=== PATIENT | male | born 1950 | race Caucasian/White ===

== ENCOUNTER 2017-11-29 09:14 | Outpatient (CLI) | payer MEDICARE ==
[2017-11-29 10:21] LABS: INR-International Normal Ratio 1.2; Prothrombin Time 15.7 SEC (12.0-14.7)
[2017-11-29 10:40] LABS: Anion Gap 16 mmol/L (10-20); BUN (Urea Nitrogen) 25 mg/dL (8.4-25.7); CRP (Inflammatory) Less than 0.50 mg/dL (= or < 0.5); Calc. Creatinine Clearance 0 mL/min (70-130); Calcium 9.9 mg/dL (7.8-10.44); Carbon Dioxide 24 mmol/L (23-31); Chloride 101 mmol/L (98-107); Estimated GFR-MDRD 46; Glucose 136 mg/dL (80-115); Potassium 4.5 mmol/L (3.5-5.1); Sodium 136 mmol/L (136-145)
[2017-11-29 10:42] LABS: Bilirubin Small (Negative); Blood, Urine Negative (Negative); Clarity CLEAR (Clear); Glucose, Urine (Dipstick) Negative (Negative); Leukocyte Negative (Negative); Nitrite Negative (Negative); Protein, Urine (Dipstick) Negative (Neg-Trace); Specific Gravity, Urine 1.025 (1.002-1.036); pH, Urine 5.5 (5.0-9.0)
[2017-11-29 10:50] LABS: Bacteria/HPF None Seen HPF (None Seen); Hyaline Casts/LPF 0-3 HYALINE CAST LPF (0-3 Hyaline); Pathc Cast-AUWi Flag 0.14 (0-2.49); RBC/HPF 0-3 HPF (0-3); Squamous Epithelial None Seen HPF (0-3); WBC/HPF 0-3 HPF (0-3)
[2017-11-29 11:03] LABS: Eosinophils 1 % (0-10); Hemoglobin 13.3 g/dL (14.0-18.0); Lymphocytes 29 % (21-51); MDiff Complete? YES; Mean Corpuscular HGB CONC 35.2 g/dL (32.0-36.0); Mean Corpuscular Hemoglobin 36.8 pg (27.0-31.0); Mean Platelet Volume 7.5 fL (7.4-10.4); Monocytes 10 % (0-10); Neutrophil 60 % (42-75); PLT Morphology Comment Appears Adequate; Platelet Count 176 thou/uL (130-400); RBC Distribution Width 12.9 % (11.5-14.5); White Blood Cell (WBC) Count 4.8 thou/uL (4.8-10.8)
--- NOTE | 2017-11-29 14:29 | EKG ---
Test Reason : Blood Pressure : / mmHG Vent. Rate : 085 BPM Atrial Rate : 085 BPM P-R Int : 250 ms QRS Dur : 090 ms QT Int : 364 ms P-R-T Axes : 065 067 052 degrees QTc Int : 433 ms Sinus rhythm with 1st degree A-V block Cannot rule out Anterior infarct (cited on or before 18-JAN-2017) Abnormal ECG When compared with ECG of 18-JAN-2017 16:44, NC interval has increased Nonspecific T wave abnormality no longer evident in Inferior leads Confirmed by ELINA LEE ([id number]) on 11/29/2017 2:28:35 PM Referred By: BENOIT Confirmed By:ELINA LEE
== END 2017-11-29 09:15 | disposition home or self-care (01) ==
LOC: LABBT 09:14
PROVIDERS: ATTEND Orthopaedic Surgery
DX: Z01.818 Encounter for other preprocedural examination (principal); I44.0 Atrioventricular block, first degree; R94.31 Abnormal electrocardiogram [ECG] [EKG]; Z96.641 Presence of right artificial hip joint
CPT/HCPCS: 80048; 81001; 85025; 85610; 85652; 86140; 86850; 86900; 86901; 87081; 93005; 93010

== ENCOUNTER 2017-11-29 09:15 | Inpatient (IN) | payer MEDICARE ==
[2017-11-29 09:57] VITALS: BMI 40.1
--- NOTE | 2017-12-05 16:37 | HP ---
DATE OF ADMISSION: 12/06/2017 HISTORY OF PRESENT ILLNESS: The patient is a 67-year-old male who has a complicated history followin g previous right total hip replacement. He first underwent right total hip replacement in 03/2016. After vigorous physical therapy so weeks postop, he developed rupture of his abductor repair and elizabeth karen and required secondary wound closure. He initially did well following this, but in 01/2017, he developed a periprosthetic fracture about the stem with the femoral component. There is no definite injury. He underwent revision with open reduction internal fixation and placement of a long stem fem oral component. He initially did well, but subsequently the stem subsided within the femoral canal a nd he developed shortening between 3/4 of an inch to almost 1 inch of shortening and he developed sub luxation and popping at the hip which was documented on stress x-rays. The fracture is subsequently healed. More definitive treatment has been delayed because the patient does have a history of atrial fibrillation and has been on anticoagulation. He did undergo a Watchman procedure recently which mendes s been successfully sinus rhythm. He has obtained cardiac clearance from Dr. Sotelo as well as Dr. Marcus Carolina. He has been on Eliquis, but he has stopped this 3 days prior to surgery and the pl an is to place him on Plavix several days postop. He is admitted at this time for total hip revision of at least the femoral component. PAST HISTORY: As noted above. The patient has had a previous bypass surgery, also had low back surg sarkis. He has a history of gout. CURRENT MEDICATIONS: Prilosec, tamsulosin, carvedilol, valsartan, hydrochlorothiazide, aspirin, mult ivitamins, cetirizine, Eliquis, Praluent, Flomax ProAir, testosterone, multivitamins, indomethacin. He has stopped the Eliquis, but has continued aspirin and as mentioned above, it has planned to place him on Plavix per Cardiology after recovering from hip surgery. He has no known allergies. Family history, social history, review of systems is otherwise unremarkable. Please see the old delmer t. PHYSICAL EXAMINATION: GENERAL: Reveals a healthy heavyset male. HEENT: Unremarkable. NECK: Supple. CHEST: Clear. HEART: Regular rate and rhythm. ABDOMEN: Soft, nontender. RECTAL/GENITAL: Deferred. EXTREMITIES: Pertinent findings of the right hip. The previous wounds are healed well. The right l eg is shorter by at least one half to the course of an inch. There is no point tenderness. There is pain and slight popping with extremes of hip motion. NEUROVASCULAR: Intact. There are palpable distal pulses. He walks with a walker. X-RAY FINDINGS: X-rays of the right hip reveal a previous fracture is healed. The acetabular compon ent is in good position. The femoral stem has subsided within the canal of the femur. IMPRESSION: 1. 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 2. Atherosclerotic cardiovascular disease status post bypass. 3. History of atrial fibrillation, status post Watchman foot. 4. History of hypertension. 5. History of gout. PLAN: Right total hip reveal a revision of at least the femoral component and possible acetabular co mponent. The nature of the surgery, length of recovery, and potential complications as infection, lo ss of motion, incomplete relief, neurovascular injury, possible transfusion, fracture of the femur, l eg length discrepancy, continued instability, and need for revision have been discussed in detail wit h the patient and his .
[2017-12-06] MEDS ORDERED: CEFAZOLIN/Water 2 GM/20 ML SYRINGE ONE (06:18)
[2017-12-06] MEDS ORDERED: Sodium Chloride 0.9% 100 ML ONE (06:18)
[2017-12-06] MEDS ORDERED: Fentanyl 100 MCG/2 ML VIAL ONE ×6 (06:35→11:24)
[2017-12-06] MEDS ORDERED: Midazolam HCl 2 mg/2 ml Vial ONE ×2 (06:35→06:45)
[2017-12-06] MEDS ORDERED: Ropivacaine 0.5% HCl/PF (150 MG/30 ML VIAL) ONE (06:36)
[2017-12-06] MEDS ORDERED: Ropivacaine 0.2% HCl/PF 20 ML ONE (08:59)
[2017-12-06] MEDS ORDERED: Ondansetron HCl/PF 4 MG/2 ML Vial IVP PRN ×3 (09:49→12:57)
[2017-12-06] MEDS ORDERED: Promethazine HCl 25 MG/ML VIAL IM PRN ×2 (09:49→10:45)
[2017-12-06] MEDS ORDERED: Promethazine HCl 25 MG/ML VIAL SLOW IVP PRN ×2 (09:49→12:57)
[2017-12-06] MEDS ORDERED: Tranexamic Acid 1,000 MG in Sodium Chloride 0.9% 100 ML IVPB SCH ×2 (10:30→12:57)
[2017-12-06] MEDS ORDERED: fentaNYL Citrate/PF 1,250 MCG, Bupivacaine 25 ML in Sodium Chloride 0.9% 250 ML 200 ML EPIDURAL SCH (10:45)
[2017-12-06] MEDS ORDERED: diphenhydrAMINE 50 MG/ML VIAL IVP PRN (10:45)
[2017-12-06] MEDS ORDERED: Zolpidem Tartrate 5 MG TAB PO PRN ×2 (10:45→12:57)
[2017-12-06] MEDS ORDERED: traMADol HCl 50 MG TAB PO PRN ×3 (10:45→12:57)
[2017-12-06] MEDS ORDERED: diphenhydrAMINE 25 MG CAP PO PRN ×2 (10:45→12:57)
[2017-12-06] MEDS ORDERED: Hydrocerin (Eucerin) Cream 120 gm Jar TOP PRN (10:45)
[2017-12-06] MEDS ORDERED: Naloxone HCl 0.4 mg/ml Vial IV PRN (10:45)
[2017-12-06] MEDS ORDERED: Promethazine HCl 25 MG SUPP PR PRN (10:45)
[2017-12-06] MEDS ORDERED: Bupivacaine 0.25% 10 ML VIAL EPIDURAL PRN (10:45)
[2017-12-06] MEDS ORDERED: diphenhydrAMINE 50 MG/ML VIAL IM PRN (10:45)
[2017-12-06] MEDS ORDERED: HYDROcodone/Acetaminophen 5/325 mg Tablet PO PRN (10:45)
[2017-12-06] MEDS ORDERED: Naloxone HCl 0.4 mg/ml Vial IVP PRN (10:45)
[2017-12-06] MEDS ORDERED: ALIROCUMAB 75 MG SQ SCH (12:57)
[2017-12-06] MEDS ORDERED: HYDROcodone/Acetaminophen 10/325 mg Tablet PO PRN ×2 (12:57)
[2017-12-06] MEDS ORDERED: CEFAZOLIN/Water 2 GM/20 ML SYRINGE SLOW IVP SCH (12:57)
[2017-12-06] MEDS ORDERED: Fentanyl 100 MCG/2 ML VIAL SLOW IVP PRN ×2 (12:57)
[2017-12-06] MEDS ORDERED: Acetaminophen 325 MG TAB PO PRN (12:57)
[2017-12-06] MEDS: HYDROcodone/Acetaminophen 5/325 mg Tablet PO PRN ×3 (13:09→21:16)
--- NOTE | 2017-12-06 13:27 | RAD ---
RIGHT HIP TWO VIEWS: History: Post op hip. Comparison: 01-23-17 FINDINGS: Satisfactory appearance of right hip arthroplasty with long femoral stem and multiple cerclage wires. Post-operative gas and edema is present. IMPRESSION: Satisfactory post-operative appearance. POS: EFFIE
[2017-12-06] MEDS ORDERED: ALIROCUMAB 75 MG SC SCH (13:30)
[2017-12-06] MEDS ORDERED: Levalbuterol HCl 0.63 MG/3 ML NEB NEB PRN (14:00)
[2017-12-06] MEDS: Sodium Chloride 0.9% 1,000 ML IV SCH ×2 (14:03→22:57)
[2017-12-06] MEDS ORDERED: Albuterol Sulfate 1.25 MG/3 ML NEB NEB PRN (14:19)
[2017-12-06] MEDS: CEFAZOLIN/Water 2 GM/20 ML SYRINGE SLOW IVP SCH ×2 (15:21→21:50)
[2017-12-06] MEDS ORDERED: Indomethacin 25 mg Capsule PO SCH (17:00)
[2017-12-06] MEDS ORDERED: Aspirin 325 MG TAB PO SCH (21:00)
[2017-12-06] MEDS ORDERED: Non-Formulary Item 1 EACH (Melatonin [Melatonin] 10 MG) PO SCH (21:00)
[2017-12-06] MEDS: Indomethacin 25 mg Capsule PO SCH (21:16)
[2017-12-06] MEDS: Melatonin 3 MG TAB PO SCH (21:16)
[2017-12-06] MEDS: Tamsulosin HCl 0.4 MG CAP PO SCH (21:17)
[2017-12-06] MEDS: Carvedilol 3.125 MG TAB PO SCH (21:17)
[2017-12-06] MEDS: Senokot S 8.6-50 MG TAB PO SCH (21:18)
[2017-12-06] MEDS: Ferrous Gluconate 324 MG TAB PO SCH (21:22)
[2017-12-07] MEDS: HYDROcodone/Acetaminophen 5/325 mg Tablet PO PRN ×4 (01:14→21:50)
[2017-12-07 05:21] LABS: Hemoglobin 9.3 g/dL (14.0-18.0); Mean Corpuscular HGB CONC 34.3 g/dL (32.0-36.0); Mean Corpuscular Hemoglobin 36.7 pg (27.0-31.0); Mean Platelet Volume 7.8 fL (7.4-10.4); Platelet Count 132 thou/uL (130-400); RBC Distribution Width 12.7 % (11.5-14.5); Red Blood Cell (RBC) Count 2.54 mill/uL (4.70-6.10); White Blood Cell (WBC) Count 6.5 thou/uL (4.8-10.8)
--- NOTE | 2017-12-07 06:47 | HP ---
DATE OF ADMISSION: 12/06/2017 PRIMARY CARE PHYSICIAN: Dr. Ray Gillespie. CHIEF COMPLAINT: Right total hip. HISTORY OF PRESENT ILLNESS: Dr. Cortez has underwent routine right total hip replacement. The patient did well with surgery and states his pain is controlled. The patient with a history of atrial fibrillation, priorly on Eliquis. The patient has discussed with his harp regulator on an outpatient basis for preop clearance, transitioning to Plavix on discharge, is currently on aspirin. Reports no active bleeding and is followed by Pulmonology on outpatient basis for a possible diagnosis of COPD; however, felt to be secondary to his obesity and possibly Pickwickian syndrome. Patient denies any sputum production. Does have a little irritation following intubation and dry cough, but no shortness of breath, no chest pain. Patient does state he gets quite constipated with narcotics, but has docusate sodium/sennosides ordered. No current abdomen pain. REVIEW OF SYSTEMS: No fevers, no chills. Positive for cough. No shortness breath, no chest pain, no palpitations. No abdomen pain, no current constipation. No lower extremity edema. Some postsurgical right hip pain with expectations. No dizziness or confusion. PAST MEDICAL HISTORY: Includes coronary artery disease, COPD, paroxysmal atrial fibrillation, hypertension, hyperlipidemia. HOME MEDICATIONS: Include Eliquis 5 mg, aspirin 81 mg, carvedilol 3.125 mg, hydrochlorothiazide 25 mg, indomethacin for history of gout 50 mg, melatonin at bedtime, Lovaza, fish oil omega 3, Prilosec 20 mg, Flomax 0.4 mg, valsartan/ hydrochlorothiazide 80/12.5. The patient does have obstructive sleep apnea, is on CPAP within. PAST SURGICAL HISTORY: Include coronary artery bypass graft, low back surgery. FAMILY HISTORY: Noncontributory to right hip surgery. PHYSICAL EXAMINATION: VITAL SIGNS: Temperature 97.9, pulse of 83, respiratory rate of 20, oxygen saturation 97% on room air, blood pressure 103/68. GENERAL: The patient is alert and oriented, no acute distress. HEENT: Head is normocephalic, atraumatic. Extraocular movements are intact. Sclerae are clear. NECK: Supple. HEART: Regular rate and rhythm. No murmurs auscultated. LUNGS: Clear to auscultation bilaterally, diminished secondary to body habitus. ABDOMEN: Protuberant, soft, nontender. Positive bowel sounds, slightly hypoactive. EXTREMITIES: Lower extremities without cyanosis or edema. Dressing intact over right hip. NEUROLOGIC: The patient is alert and oriented x3, no focal deficits. Speech is normal. LABORATORY WORK: Postoperative hemoglobin of 9.3, platelet count of 132, white blood cell count of 6.5, stable postoperative changes on postoperative right hip x-ray. ASSESSMENT AND PLAN: Status post right total hip, coronary artery disease, chronic obstructive pulmonary disease, paroxysmal atrial fibrillation. Agree with transition to Plavix from cardiology's plan on discharge. Currently, heart rate is well controlled. No signs of atrial fibrillation at this point. Agree with likely Pickwickian syndrome. The patient is on his home CPAP at night. No respiratory difficulties during the day. We will monitor for sputum production and fevers. Ordered Xopenex breathing treatments p.r.n. Continuing agreement with the patient's other current blood pressure medications and baby aspirin. We will continue to follow while inpatient today. The patient states he expect potential discharge outpatient rehabilitation prior to or during the weekend. Pt reports Dr. Carolina has already written for Plavix script awaiting at pharmacy. LAWRENCE
--- NOTE | 2017-12-07 08:48 | OP ---
DATE OF PROCEDURE: 12/06/2017 SURGEON: Mohinder Cortez M.D. BRAKE MACHINE OPERATOR: Kedar Jha MD ANESTHESIA: General plus epidural. PREOPERATIVE DIAGNOSIS: Failed right total hip revision. POSTOPERATIVE DIAGNOSIS: Failed right total hip revision. PROCEDURES PERFORMED: Revision femoral component of right total hip revision. (Juan [employer] nondenominational modular conical stem, 195 mm in length by 18 mm in diameter with [place] nondenominational modular calcar r eplacement body 19 mm +20 mm in height with 36 mm +5 mm neck length femoral head and prophylactic cab ling of the greater trochanter with Dall-Miles cables). OPERATIVE FINDINGS: There was abundant scar tissue. There are no signs of infection. The femoral c omponent was not grossly loose, but was loose and subsided. After removing the scar tissue, I was ab le to remove this without too much difficulty. The acetabular component was in good position and wel l fixed. NARRATIVE REPORT: After satisfactory anesthesia was induced in supine position, the patient was plac ed in lateral decubitus position and this position held with hip positioning device. Sequential comp ression device was used on the non-operative leg throughout the procedure. The patient's right leg w as prepped and draped in routine sterile fashion. The hip was approached through a lateral curviline ar incision using portion of the previous incision, carried down to subcutaneous tissues. Bleeding p oints controlled with Bovie cautery. IT band and gluteal fascia were split in line with the skin inc ision. Direct lateral approach was accomplished by dividing the anterior third of gluteus medius min imus tendons with Bovie cautery and reflecting this as a single flap anteriorly and medially. Anteri or capsulectomy was performed. Proximal femur was subperiosteally exposed. The hip dislocated anter iorly. The femoral head was removed, abundant scar tissues was removed about the proximal femur. A small amount of bone was removed from the proximal femur to gain access to the prosthetic stem and alethea ne was cut to accommodate anticipated calcar replacement body using a trial prosthesis as a guide. F ollowing this, the femoral stem extractor was placed around the trunnion of the component and using a slap hammer, the stem was removed without too much difficulty. Abundant scar tissue was removed fro m the acetabulum and it is expected and appeared to be intact. The femoral canal was then reamed bot h by hand with power reamers to a total of 18 mm in diameter to a depth of 195. This appeared to giv e good stable fixation and permanent 18 mm x 195 mm conical body was then held in position. There was good fit, stability, and did not ap pear to be of rotationally and axially stable. A trial reduction with a 19 mm body +20 mm in height with a +5 mm 36 mm head gave appropriate size, fit, stability, and correction of motion about all the leg length discrepancy. The trial components were removed. The permanent calcar replacing body was then placed over the proximal femur engaging the stem of the conical stem and then the screw tighten ed and tied with a torque wrench to 150 . I elected to put a [employer] cable to reinforce it w ith the greater trochanter, so this would not fracture and using the appropriate guides Tez brambila cables were placed through the prosthesis after appropriate drilling and then tied over the later al aspect of the greater trochanter after appropriate tensioning and crimping the wires after they mendes ve been tightened. The permanent +5 mm neck length, 36 mm head was then placed on the trunnion. The hip again reduced and found to be stable. I had anticipated the possible need for an MDM cup, but t his appeared to be stable and I elected to not removing the liner of the acetabular component. This could cause a problem since this appeared to be stable. Wound was then copiously irrigated with puls atile lavage. The abductors were repaired with interrupted #2 Vicryl, IT band and gluteal fascia wer e closed with interrupted #2 Vicryl and running #2 Quill. Subcutaneous tissues were closed with runn ing 0 Quill suture and the skin closed with running subcuticular 3-0 Monoderm and SurgiSeal skin adhe sive. A sterile dressing was applied. The patient turned to supine position, a pillow was placed be tween his legs. Sequential compression device was placed on the operated leg. He was awakened and t aken to recovery room in stable condition. There were no apparent intraoperative complications. ESTIMATED BLOOD LOSS: 700 mL.
[2017-12-07] MEDS ORDERED: Hydrochlorothiazide 25 MG TAB PO SCH (09:00)
[2017-12-07] MEDS ORDERED: GUAIFENESIN PO SCH (09:00)
[2017-12-07] MEDS ORDERED: PSEUDOEPHEDRINE PO SCH (09:00)
[2017-12-07] MEDS ORDERED: [UNRECOGNIZED DRUG - OTHER] PO SCH (09:00)
[2017-12-07] MEDS ORDERED: Non-Formulary Item 1 EACH (Calcium Carbonate/Vitamin D3 [Calcium 600 + Vitamin D] 1 TABLE PO SCH (09:00)
[2017-12-07] MEDS ORDERED: Non-Formulary Item 1 EACH (Omeprazole Magnesium [Prilosec Otc] 20 MG) PO SCH (09:00)
[2017-12-07] MEDS ORDERED: OMEGA 3 ACID ETHYL ESTERS PO SCH (09:00)
[2017-12-07] MEDS ORDERED: Non-Formulary Item 1 EACH (Cholecalciferol (Vitamin D3) [Vitamin D3] 2,000 UNIT) PO SCH (09:00)
[2017-12-07] MEDS ORDERED: FEXOFENADINE PO SCH (09:00)
[2017-12-07] MEDS ORDERED: DEXTROMETHORPHAN PO SCH (09:00)
[2017-12-07] MEDS: guaiFENesin/DM ER PO SCH (10:03)
[2017-12-07] MEDS: Indomethacin 25 mg Capsule PO SCH ×2 (10:03→21:45)
[2017-12-07] MEDS: Senokot S 8.6-50 MG TAB PO SCH ×2 (10:04→21:46)
[2017-12-07] MEDS: Carvedilol 3.125 MG TAB PO SCH ×2 (10:04→21:45)
[2017-12-07] MEDS: Calcium Carbonate + Vit D 1 TAB PO SCH (10:04)
[2017-12-07] MEDS: Hydrochlorothiazide 25 MG TAB PO SCH (10:05)
[2017-12-07] MEDS: Ferrous Gluconate 324 MG TAB PO SCH ×2 (10:05→21:46)
[2017-12-07] MEDS: Valsartan 80 MG TAB PO SCH (10:05)
[2017-12-07] MEDS: Fish Oil 1,000 MG CAP PO SCH (10:05)
[2017-12-07] MEDS: Tamsulosin HCl 0.4 MG CAP PO SCH ×2 (10:05→21:44)
[2017-12-07] MEDS: Multivitamin W/ Minerals 1 TAB PO SCH (10:05)
[2017-12-07] MEDS: Sodium Chloride 0.9% 1,000 ML IV SCH ×2 (10:06→19:58)
[2017-12-07] MEDS: Loratadine/Pseudoephedrine 10/240 mg Tablet PO SCH (10:07)
[2017-12-07] MEDS: Melatonin 3 MG TAB PO SCH (21:44)
[2017-12-08 05:04] LABS: Hemoglobin 9.2 g/dL (14.0-18.0); Mean Corpuscular HGB CONC 35.9 g/dL (32.0-36.0); Mean Corpuscular Hemoglobin 37.6 pg (27.0-31.0); Platelet Count 129 thou/uL (130-400); RBC Distribution Width 12.6 % (11.5-14.5); Red Blood Cell (RBC) Count 2.45 mill/uL (4.70-6.10); White Blood Cell (WBC) Count 6.2 thou/uL (4.8-10.8)
[2017-12-08] MEDS: Sodium Chloride 0.9% 1,000 ML IV SCH ×3 (06:21→23:15)
[2017-12-08] MEDS: HYDROcodone/Acetaminophen 5/325 mg Tablet PO PRN ×3 (07:50→18:24)
[2017-12-08] MEDS: Fish Oil 1,000 MG CAP PO SCH (09:18)
[2017-12-08] MEDS: Indomethacin 25 mg Capsule PO SCH ×2 (09:18→21:26)
[2017-12-08] MEDS: Carvedilol 3.125 MG TAB PO SCH ×2 (09:18→21:27)
[2017-12-08] MEDS: Senokot S 8.6-50 MG TAB PO SCH ×2 (09:19→19:33)
[2017-12-08] MEDS: Hydrochlorothiazide 25 MG TAB PO SCH (09:19)
[2017-12-08] MEDS: Valsartan 80 MG TAB PO SCH (09:19)
[2017-12-08] MEDS: Ferrous Gluconate 324 MG TAB PO SCH ×2 (09:19→21:27)
[2017-12-08] MEDS: Tamsulosin HCl 0.4 MG CAP PO SCH ×2 (09:19→21:27)
[2017-12-08] MEDS: Calcium Carbonate + Vit D 1 TAB PO SCH (09:19)
[2017-12-08] MEDS: Multivitamin W/ Minerals 1 TAB PO SCH (09:19)
[2017-12-08] MEDS: guaiFENesin/DM ER PO SCH (09:19)
[2017-12-08] MEDS: Loratadine/Pseudoephedrine 10/240 mg Tablet PO SCH (09:20)
--- NOTE | 2017-12-08 10:18 | PRG ---
DATE OF SERVICE: 12/08/2017 SUBJECTIVE: Delroy is postop day #2 from a right hip revision long stem arthroplasty. He is doing re latively well, but he is still a little unsteady and he is tolerating a regular diet, but his epidura l still in place as is his Tang catheter. OBJECTIVE: VITAL SIGNS: Temperature 97.9, pulse 82, respiratory rate 18, O2 saturation is 97% on room air, bloo d pressure 119/74. GENERAL: He is alert and oriented to person, place, time, and situation. EXTREMITIES: Grossly nonfocal. Incision is clean and closed. He is neurovascularly intact in both lower extremities. ASSESSMENT: 1. A 67-year-old white male postoperative day 2 right long stem hip diaphyseal fit revision arthropl asty. 2. Postoperative hemorrhagic anemia, asymptomatic. PLAN: Continue current management. Discontinue epidural and Tang today, observe for the next 24 ho urs to ensure urinary output and probable discharge early tomorrow morning.
--- NOTE | 2017-12-08 12:16 | PRG ---
DATE OF SERVICE: 12/08/2017 SUBJECTIVE: The patient is postop day #2 status post revision of the right prior total hip replaceme nt by Dr. Cortez. The patient is doing well at this time. He was ambulating in the [place] earlier toda y. He is in good spirits. OBJECTIVE: VITAL SIGNS: Temperature 97.9, pulse 82, respirations 18, pulse ox 97, blood pressure 119/74. HEART: Regular rate and rhythm. LUNGS: Clear. ABDOMEN: Soft, obese. EXTREMITIES: With no edema. LABORATORY: H&H 9.2 and 25.6. ASSESSMENT: 1. Postoperative day #2, status post revision of the right total hip replacement by Dr. Cortez. 2. Anemia, on iron 324 b.i.d. 3. History of paroxysmal atrial fibrillation. 4. Coronary artery disease, status post bypass. 5. Hyperlipidemia. 6. Hypertension. 7. Chronic obstructive pulmonary disease. 8. Diabetes. 9. Sleep apnea. PLAN: 1. Restarted the patient's Plavix 75 p.o. daily today. 2. Continue physical therapy b.i.d. 3. Possible discharge today or tomorrow. I will continue to follow.
[2017-12-08] MEDS: Melatonin 3 MG TAB PO SCH (21:26)
[2017-12-09] MEDS: HYDROcodone/Acetaminophen 5/325 mg Tablet PO PRN ×2 (00:57→07:01)
[2017-12-09 07:01] VITALS: BP 97/61; TEMP 98.6
[2017-12-09] MEDS ORDERED: Clopidogrel Bisulfate 75 MG TAB PO SCH (09:00)
[2017-12-09] MEDS: Calcium Carbonate + Vit D 1 TAB PO SCH (09:00)
[2017-12-09] MEDS: Carvedilol 3.125 MG TAB PO SCH (09:00)
[2017-12-09] MEDS: Ferrous Gluconate 324 MG TAB PO SCH (09:01)
[2017-12-09] MEDS: guaiFENesin/DM ER PO SCH (09:02)
[2017-12-09] MEDS: Fish Oil 1,000 MG CAP PO SCH (09:02)
[2017-12-09] MEDS: Hydrochlorothiazide 25 MG TAB PO SCH (09:02)
[2017-12-09] MEDS: Indomethacin 25 mg Capsule PO SCH (09:02)
[2017-12-09] MEDS: Tamsulosin HCl 0.4 MG CAP PO SCH (09:03)
[2017-12-09] MEDS: Senokot S 8.6-50 MG TAB PO SCH (09:03)
[2017-12-09] MEDS: Multivitamin W/ Minerals 1 TAB PO SCH (09:03)
[2017-12-09] MEDS: Valsartan 80 MG TAB PO SCH (09:03)
[2017-12-09] MEDS: Loratadine/Pseudoephedrine 10/240 mg Tablet PO SCH (09:12)
[2017-12-09] MEDS: Sodium Chloride 0.9% 1,000 ML IV SCH (09:25)
--- NOTE | 2017-12-09 12:35 | PRG ---
DATE OF SERVICE: 12/09/2017 SUBJECTIVE: The patient is doing well this morning, his ambulation has markedly improved. He is martin dy for discharge. OBJECTIVE: VITAL SIGNS: Temperature 98.6, pulse 74, respirations 16, pulse ox 97, and blood pressure 97/61. HEART: Regular rate and rhythm. LUNGS: Clear. ABDOMEN: Soft. ASSESSMENT: 1. Postop day #3, status post right total hip revision/replacement by Dr. Cortez. 2. Anemia, on iron 324 b.i.d. 3. History of paroxysmal atrial fibrillation. 4. Coronary artery disease status post bypass. 5. Hypertension. 6. Hyperlipidemia 7. Chronic obstructive pulmonary disease. 8. Diabetes. 9. Sleep apnea. PLAN: 1. The patient restarted his Plavix yesterday daily. 2. Continue all medications. 3. Follow up with Dr. Ray Gillespie in 1 week. 4. Continue with physical therapy.
--- NOTE | 2017-12-09 20:18 | DIS ---
DATE OF ADMISSION: 12/06/2017 DATE OF DISCHARGE: 12/09/2017 The patient is a 67-year-old white male who has had previous right total hip replacement. In January of last year, he had sustained a periprosthetic fracture around the femoral stem. He underwent open reduction internal fixation with a long stem prosthesis which subsequently settled in with leg shorte felicita and instability of the hip. The fracture is healed. A definitive surgery was delayed while he was obtaining cardiac clearance. He has a long history of atrial fibrillation. He underwent a Watch man procedure which was successfully done, sinus rhythm. He was on Eliquis until the time of surgery , this was stopped preoperatively. He was cleared for surgery by Dr. Carolina and the plan is to stop Eliquis and he will be on Plavix postoperatively. He was taken to the operating the day of admission and underwent revision of femoral component. The right total hip replacement with a thicker and col lared femoral stem. His postoperative course was essentially benign. His H&H is stabilized at 9 and 25. He has begun on program ambulation with a walker. Presently, his wound is clean. He is comfor table. He is to resume Plavix. He was given a prescription for [place] 10 for pain, 100 tablets. He will continue his other medications. He was given written wound care instructions and we will rechec k in my office in approximately 2 weeks or sooner if there any problems prior to that time. DISCHARGE DIAGNOSES: 1. Loose femoral component, status post right total hip revision. 2. Acute blood loss anemia. 3. History of atrial fibrillation. 4. History of hypertension.
== END 2017-12-09 11:00 | disposition home or self-care (01) | DRG 467 ==
LOC: SJJU 12-06 05:41 → EDSTATUS 12-06 09:15 → SURG A 12-06 12:19
PROVIDERS: ADMIT Orthopaedic Surgery; ATTEND Orthopaedic Surgery
PROC: 0SWU0JZ Revision of Synthetic Substitute in Left Knee Joint, Femoral Surface, Open Approach (ICD-10-PCS; principal; 2017-12-06)
DX: T84.032A Mechanical loosening of internal right knee prosthetic joint, initial encounter (principal); Z68.41 Body mass index [BMI] 40.0-44.9, adult; D62 Acute posthemorrhagic anemia; E66.9 Obesity, unspecified; J44.9 Chronic obstructive pulmonary disease, unspecified; Z79.82 Long term (current) use of aspirin; I25.10 Atherosclerotic heart disease of native coronary artery without angina pectoris; I48.0 Paroxysmal atrial fibrillation; I10 Essential (primary) hypertension; E78.5 Hyperlipidemia, unspecified; Z79.01 Long term (current) use of anticoagulants; M10.9 Gout, unspecified; G47.33 Obstructive sleep apnea (adult) (pediatric); Z95.1 Presence of aortocoronary bypass graft; E11.9 Type 2 diabetes mellitus without complications
CPT/HCPCS: 36415; 85027; C1776; G8978-GP-CL; G8979-GP-CJ; G8987-GO-CL; G8988-GO-CI; J2250; J2795; J3010; J3370; J3490; J7050

== ENCOUNTER 2018-03-19 07:04 | Day surgery (SDC) | payer MEDICARE ==
[2018-03-18 15:10] VITALS: BMI 40.1
--- NOTE | 2018-03-19 10:25 | OP ---
PREOPERATIVE DIAGNOSES: 1. Family history of colon polyps. 2. Recent incomplete colonoscopy. PROCEDURE IN DETAIL: After informed consent was obtained, the patient placed in left lateral decubit us position. Anesthesia was administered per the Anesthesia Department. Forward-viewing endoscope w as inserted into the rectum. After perianal inspection, rectal exam were normal. It was passed to t he cecum with ease. The cecum, ileocecal valve, and appendiceal orifice were normal. The prep was e xcellent. The ascending, transverse, descending, sigmoid, and rectum were normal except for left-yuri ed diverticulosis coli. Retroflexion in the rectum showed small internal hemorrhoids. ASSESSMENT: 1. Left-sided diverticulosis coli. 2. Small internal hemorrhoids. RECOMMENDATIONS: Repeat colonoscopy in 5 years.
[2018-03-19] MEDS ORDERED: PROPOFOL 200 MG/20 ML VIAL ONE (13:39)
== END 2018-03-19 10:52 | disposition home or self-care (01) ==
LOC: SDC 07:04
PROVIDERS: ATTEND Internal Medicine Gastroenterology
PROC: 0DJD8ZZ Inspection of Lower Intestinal Tract, Via Natural or Artificial Opening Endoscopic (ICD-10-PCS; principal; 2018-03-19)
DX: Z12.11 Encounter for screening for malignant neoplasm of colon (principal); K57.30 Diverticulosis of large intestine without perforation or abscess without bleeding; K64.8 Other hemorrhoids; J45.909 Unspecified asthma, uncomplicated; G47.30 Sleep apnea, unspecified; I25.10 Atherosclerotic heart disease of native coronary artery without angina pectoris; I10 Essential (primary) hypertension; I48.91 Unspecified atrial fibrillation; Z83.71 Family history of colonic polyps; Z79.02 Long term (current) use of antithrombotics/antiplatelets; Z79.82 Long term (current) use of aspirin; Z95.5 Presence of coronary angioplasty implant and graft; Z95.1 Presence of aortocoronary bypass graft; Z95.818 Presence of other cardiac implants and grafts
CPT/HCPCS: J2704

== ENCOUNTER 2018-07-29 11:07 | Emergency (ER) | payer MEDICARE | END 2018-07-29 14:49 | disposition home or self-care (01) | LOC: ERS 11:07 | DX: T65.91XA Toxic effect of unspecified substance, accidental (unintentional), initial encounter (principal); I10 Essential (primary) hypertension; I48.91 Unspecified atrial fibrillation; Z79.899 Other long term (current) drug therapy; Z79.82 Long term (current) use of aspirin; Z79.891 Long term (current) use of opiate analgesic | CPT/HCPCS: 99283 ==

== ENCOUNTER 2021-10-18 08:34 | Outpatient (CLI) | payer MEDICARE | END 2021-10-18 08:35 | disposition home or self-care (01) | LOC: NM 08:34 | PROVIDERS: ATTEND Internal Medicine Cardiovascular Disease | DX: I27.20 Pulmonary hypertension, unspecified (principal) | CPT/HCPCS: 71046; 78451; A9540 ==

== ENCOUNTER 2021-11-25 13:21 | Inpatient (IN) | payer MEDICARE ==
[2021-11-25 14:31] LABS: Hemoglobin 6.4 g/dL (14.0-18.0); Mean Corpuscular HGB CONC 32.7 g/dL (32.0-36.0); Mean Corpuscular Hemoglobin 35.3 pg (27.0-31.0); Mean Platelet Volume 7.2 fL (7.4-10.4); Platelet Count 193 thou/uL (130-400); RBC Distribution Width 16.9 % (11.5-14.5); Red Blood Cell (RBC) Count 1.81 mill/uL (4.70-6.10); White Blood Cell (WBC) Count 6.1 thou/uL (4.8-10.8)
[2021-11-25 14:50] LABS: Anisocytosis SLIGHT = 6-15 cells (100X) (0-5/hpf); Band 1 % (5-11); Eosinophils 2 % (0-10); Lymphocytes 5 % (21-51); MDiff Complete? YES; Macrocytosis SLIGHT = 6-15 cells (100X) (0-5/hpf); Metamyelocyte 1 % (0-0); Monocytes 12 % (0-10); Neutrophil 79 % (42-75); Ovalocytes SLIGHT = 2-5 cells (100X) (0-1/hpf); Platelet Morphology Comment Appears Adequate; Polychromasia MODERATE = 3-4 cells (100X) (0-2/hpf); Tear Drops SLIGHT = 2-5 cells (100X) (0-1/hpf)
[2021-11-25 14:51] LABS: ALT (SGPT) 17 U/L (8-55); AST (SGOT) 38 U/L (5-34); Albumin 3.5 g/dL (3.4-4.8); Alkaline Phosphatase 120 U/L (40-110); Anion Gap 20 mmol/L (10-20); BUN (Urea Nitrogen) 83 mg/dL (8.4-25.7); Calc. Creatinine Clearance 0 mL/min (70-130); Calcium 8.2 mg/dL (7.8-10.44); Carbon Dioxide 19 mmol/L (23-31); Chloride 97 mmol/L (98-107); Globulin 2.4 g/dL (2.4-3.5); Glucose 118 mg/dL (83-110); Lipase 38 U/L (8-78); Protein, Total 5.9 g/dL (5.8-8.1); Sodium 133 mmol/L (136-145)
[2021-11-25 15:05] LABS: Potassium 2.8 mmol/L (3.5-5.1)
[2021-11-25 15:11] LABS: CKMB 1.3 ng/mL (0-6.6)
[2021-11-25] MEDS ORDERED: Albumin 25% 25 GM/100 ML BOT IVPB SCH (15:45)
[2021-11-25] MEDS ORDERED: Magnesium 2 GM/50 ML BAG (IN WATER) ONE (15:46)
[2021-11-25] MEDS ORDERED: Potassium Chloride 20 MEQ/100 ML PREMIX BAG ONE (15:46)
[2021-11-25] MEDS ORDERED: Artificial Tear Sol 15 ML BOT EA EYE PRN (18:41)
[2021-11-25] MEDS ORDERED: Cepastat Lozenges 1 LOZ PO PRN (18:41)
[2021-11-25] MEDS ORDERED: Acetaminophen 650 MG Suppository PR PRN (18:41)
[2021-11-25] MEDS ORDERED: Moisturizing Cream (Eucerin) 113 GM JAR TOP PRN (18:41)
[2021-11-25] MEDS ORDERED: Sodium Chloride 0.65% Nasal 44 ML BOT EA NARE PRN (18:41)
[2021-11-25] MEDS ORDERED: Pantoprazole 40 MG VIAL IVP SCH (19:00)
[2021-11-25] MEDS ORDERED: Electrolyte Replacement Protocol 1 EACH FS SCH (19:15)
[2021-11-25 20:02] LABS: Hemoglobin 5.3 g/dL (14.0-18.0); Mean Corpuscular HGB CONC 32.9 g/dL (32.0-36.0); Mean Platelet Volume 7.4 fL (7.4-10.4); Platelet Count 147 thou/uL (130-400); RBC Distribution Width 17.2 % (11.5-14.5); Red Blood Cell (RBC) Count 1.53 mill/uL (4.70-6.10); White Blood Cell (WBC) Count 4.9 thou/uL (4.8-10.8)
[2021-11-25 20:27] LABS: Anisocytosis SLIGHT = 6-15 cells (100X) (0-5/hpf); Band 1 % (5-11); Eosinophils 2 % (0-10); Lymphocytes 9 % (21-51); MDiff Complete? YES; Macrocytosis SLIGHT = 6-15 cells (100X) (0-5/hpf); Monocytes 18 % (0-10); Neutrophil 70 % (42-75); Ovalocytes SLIGHT = 2-5 cells (100X) (0-1/hpf); Platelet Morphology Comment Appears Adequate; Tear Drops SLIGHT = 2-5 cells (100X) (0-1/hpf)
[2021-11-25 20:49] LABS: Hemoglobin 7.2 g/dL (14.0-18.0)
[2021-11-25 21:03] LABS: Calcium 8.1 mg/dL (7.8-10.44); Chloride 99 mmol/L (98-107); Potassium 3.7 mmol/L (3.5-5.1); Sodium 133 mmol/L (136-145)
[2021-11-25 21:04] LABS: Glucose 106 mg/dL (83-110)
[2021-11-25 21:05] LABS: Anion Gap 18 mmol/L (10-20); Carbon Dioxide 20 mmol/L (23-31)
[2021-11-25 21:07] LABS: Calc. Creatinine Clearance 0 mL/min (70-130)
[2021-11-25 21:08] LABS: BUN (Urea Nitrogen) 86 mg/dL (8.4-25.7)
[2021-11-25 21:42] VITALS: BMI 32.1
[2021-11-25] MEDS: Acetaminophen 325 MG TAB PO PRN (22:25)
[2021-11-25] MEDS: Gabapentin 300 MG CAP PO SCH (22:25)
[2021-11-25] MEDS: Tamsulosin HCl 0.4 MG CAP PO SCH (22:26)
[2021-11-25] MEDS: Montelukast Sodium 10 mg Tablet PO SCH (22:26)
[2021-11-25] MEDS: Sotalol HCl 80 MG TAB PO SCH (22:26)
[2021-11-25] MEDS: Pantoprazole 40 MG VIAL IVP SCH (22:27)
[2021-11-26 03:55] LABS: Anisocytosis SLIGHT = 6-15 cells (100X) (0-5/hpf); Elliptocytes SLIGHT = 2-5 cells (100X) (0-1/hpf); Eosinophils 4 % (0-10); Hemoglobin 7.9 g/dL (14.0-18.0); Lymphocytes 10 % (21-51); MDiff Complete? YES; Macrocytosis MODERATE=16-30 cells (100X) (0-5/hpf); Mean Corpuscular HGB CONC 34.9 g/dL (32.0-36.0); Mean Corpuscular Hemoglobin 35.3 pg (27.0-31.0); Monocytes 33 % (0-10); Neutrophil 52 % (42-75); Platelet Count 182 thou/uL (130-400); Platelet Morphology Comment Appears Adequate; Polychromasia SLIGHT = 2-3 cells (100X) (0-2/hpf); RBC Distribution Width 17.2 % (11.5-14.5); Red Blood Cell (RBC) Count 2.25 mill/uL (4.70-6.10); White Blood Cell (WBC) Count 7.2 thou/uL (4.8-10.8)
[2021-11-26 03:59] LABS: Phosphorus 5.2 mg/dL (2.3-4.7)
[2021-11-26 04:13] LABS: ALT (SGPT) 18 U/L (8-55); AST (SGOT) 34 U/L (5-34); Albumin 3.3 g/dL (3.4-4.8); Alkaline Phosphatase 145 U/L (40-110); Anion Gap 17 mmol/L (10-20); BUN (Urea Nitrogen) 85 mg/dL (8.4-25.7); Bilirubin, Total 2.1 mg/dL (0.2-1.2); Calc. Creatinine Clearance 34 mL/min (70-130); Carbon Dioxide 21 mmol/L (23-31); Chloride 99 mmol/L (98-107); Globulin 2.2 g/dL (2.4-3.5); Glucose 97 mg/dL (83-110); Magnesium 1.8 mg/dL (1.6-2.6); Potassium 3.1 mmol/L (3.5-5.1); Protein, Total 5.5 g/dL (5.8-8.1); Sodium 134 mmol/L (136-145)
[2021-11-26] MEDS: Levothyroxine Sodium 88 MCG TAB PO SCH (05:47)
[2021-11-26] MEDS: Acetaminophen 325 MG TAB PO PRN ×2 (05:50→20:58)
[2021-11-26] MEDS: Gabapentin 300 MG CAP PO SCH ×2 (08:56→20:43)
[2021-11-26] MEDS: Sotalol HCl 80 MG TAB PO SCH ×2 (09:50→20:44)
[2021-11-26 10:51] LABS: Eosinophils 8 % (0-10); Hemoglobin 7.7 g/dL (14.0-18.0); Lymphocytes 9 % (21-51); MDiff Complete? YES; Macrocytosis SLIGHT = 6-15 cells (100X) (0-5/hpf); Mean Corpuscular HGB CONC 34.2 g/dL (32.0-36.0); Mean Corpuscular Hemoglobin 34.4 pg (27.0-31.0); Mean Platelet Volume 7.4 fL (7.4-10.4); Monocytes 18 % (0-10); Neutrophil 65 % (42-75); Nucleated RBC 1 % (0); Ovalocytes SLIGHT = 2-5 cells (100X) (0-1/hpf); Platelet Count 190 thou/uL (130-400); Platelet Morphology Comment Appears Adequate; Polychromasia SLIGHT = 2-3 cells (100X) (0-2/hpf); RBC Distribution Width 17.2 % (11.5-14.5); Red Blood Cell (RBC) Count 2.25 mill/uL (4.70-6.10); White Blood Cell (WBC) Count 6.6 thou/uL (4.8-10.8)
[2021-11-26] MEDS: Albumin 25% 25 GM/100 ML BOT IVPB SCH ×3 (11:34→23:27)
[2021-11-26 13:28] LABS: Bacteria/HPF None Seen HPF (None Seen); Bilirubin Negative (Negative); Blood, Urine Negative (Negative); Clarity Clear (Clear); Glucose, Urine (Dipstick) Normal (Negative); Ketone, Urine Negative (Negative); Leukocyte Negative Leu/uL (Negative); Nitrite Negative (Negative); Protein, Urine (Dipstick) 20 mg/dL (Neg-Trace); RBC/HPF 0-3 HPF (0-3); Specific Gravity, Urine 1.015 (1.002-1.036); Squamous Epithelial None Seen HPF (0-3); Urobilinogen Normal mg/dL (Less than 2); WBC/HPF 0-3 HPF (0-3); pH, Urine 5.5 (5.0-9.0)
[2021-11-26] MEDS ORDERED: Polyethylene Glycol 3350 17 GM Packet PO SCH (17:00)
[2021-11-26 19:54] LABS: Hemoglobin 9.1 g/dL (14.0-18.0); Mean Corpuscular Hemoglobin 33.8 pg (27.0-31.0); Mean Corpuscular Volume 99.5 fL (78.0-98.0); Mean Platelet Volume 7.1 fL (7.4-10.4); Platelet Count 192 thou/uL (130-400); RBC Distribution Width 17.1 % (11.5-14.5); Red Blood Cell (RBC) Count 2.69 mill/uL (4.70-6.10); White Blood Cell (WBC) Count 7.3 thou/uL (4.8-10.8)
[2021-11-26 20:33] LABS: Band 3 % (5-11); Hypochromia SLIGHT = 6-15 cells (100X) (0-5/hpf); Lymphocytes 6 % (21-51); MDiff Complete? YES; Monocytes 17 % (0-10); Neutrophil 71 % (42-75); Platelet Morphology Comment Appears Adequate; Reactive Lymphocytes 3 % (0-10)
[2021-11-26] MEDS: Pantoprazole 40 MG VIAL IVP SCH (20:43)
[2021-11-26] MEDS: Montelukast Sodium 10 mg Tablet PO SCH (20:44)
[2021-11-26] MEDS: Tamsulosin HCl 0.4 MG CAP PO SCH (20:45)
[2021-11-26] MEDS ORDERED: Tamsulosin HCl 0.4 MG CAP PO SCH (21:00)
[2021-11-26 22:43] LABS: Hemoglobin 8.7 g/dL (14.0-18.0); Mean Corpuscular HGB CONC 33.7 g/dL (32.0-36.0); Mean Corpuscular Hemoglobin 33.5 pg (27.0-31.0); Mean Corpuscular Volume 99.3 fL (78.0-98.0); Mean Platelet Volume 7.2 fL (7.4-10.4); Platelet Count 176 thou/uL (130-400); Red Blood Cell (RBC) Count 2.59 mill/uL (4.70-6.10); White Blood Cell (WBC) Count 7.7 thou/uL (4.8-10.8)
[2021-11-26 23:03] LABS: Band 8 % (5-11); Eosinophils 1 % (0-10); Hypochromia SLIGHT = 6-15 cells (100X) (0-5/hpf); Lymphocytes 6 % (21-51); MDiff Complete? YES; Monocytes 21 % (0-10); Neutrophil 64 % (42-75); Platelet Morphology Comment Appears Adequate
[2021-11-27] MEDS: Acetaminophen 325 MG TAB PO PRN ×3 (02:17→21:06)
[2021-11-27 05:10] LABS: Band 3 % (5-11); Eosinophils 4 % (0-10); Hemoglobin 8.4 g/dL (14.0-18.0); Hypochromia SLIGHT = 6-15 cells (100X) (0-5/hpf); Lymphocytes 17 % (21-51); MDiff Complete? YES; Mean Corpuscular HGB CONC 35.5 g/dL (32.0-36.0); Mean Corpuscular Hemoglobin 34.5 pg (27.0-31.0); Mean Corpuscular Volume 97.4 fL (78.0-98.0); Mean Platelet Volume 7.8 fL (7.4-10.4); Monocytes 13 % (0-10); Neutrophil 61 % (42-75); Platelet Count 193 thou/uL (130-400); Platelet Morphology Comment Appears Adequate; RBC Distribution Width 16.8 % (11.5-14.5); Reactive Lymphocytes 2 % (0-10); Red Blood Cell (RBC) Count 2.44 mill/uL (4.70-6.10); White Blood Cell (WBC) Count 7.4 thou/uL (4.8-10.8)
[2021-11-27] MEDS: Albumin 25% 25 GM/100 ML BOT IVPB SCH ×3 (05:23→17:37)
[2021-11-27] MEDS: Levothyroxine Sodium 88 MCG TAB PO SCH (05:23)
[2021-11-27 08:32] LABS: Anion Gap 17 mmol/L (10-20); BUN (Urea Nitrogen) 79 mg/dL (8.4-25.7); Calc. Creatinine Clearance 43 mL/min (70-130); Calcium 8.9 mg/dL (7.8-10.44); Carbon Dioxide 21 mmol/L (23-31); Chloride 99 mmol/L (98-107); Glucose 80 mg/dL (83-110); Sodium 134 mmol/L (136-145)
[2021-11-27] MEDS: Gabapentin 300 MG CAP PO SCH ×2 (09:00→20:33)
[2021-11-27] MEDS: Sotalol HCl 80 MG TAB PO SCH ×2 (09:00→20:33)
[2021-11-27] MEDS: Allopurinol 100 MG TAB PO SCH (09:00)
[2021-11-27] MEDS: Pantoprazole 40 MG VIAL IVP SCH ×2 (09:04→20:33)
[2021-11-27] MEDS ORDERED: GoLYTELY 4,000 ml Bottle PO SCH (09:15)
[2021-11-27] MEDS ORDERED: Non-Formulary Item 1 EACH (Budesonide/Formoterol Fumarate [Budesonide-Formoterol 160-4.5] IH PRN (09:32)
[2021-11-27] MEDS ORDERED: Potassium Chloride 20 MEQ TAB PO SCH (09:45)
[2021-11-27] MEDS ORDERED: Colchicine 0.6 MG TAB PO SCH (09:45)
[2021-11-27] MEDS: Bumetanide 1 MG TAB PO SCH (17:37)
[2021-11-27] MEDS: Mometasone 200 MCG/Formoterol 5 MCG 120 PUFF INHALER INH SCH (18:58)
[2021-11-27] MEDS: Montelukast Sodium 10 mg Tablet PO SCH (20:33)
[2021-11-27] MEDS: Tamsulosin HCl 0.4 MG CAP PO SCH (20:33)
[2021-11-27] MEDS ORDERED: Non-Formulary Item 1 EACH (Bumetanide [Bumetanide] 2 MG Tablet) PO SCH (21:00)
[2021-11-27] MEDS ORDERED: BUDESONIDE FORMOTEROL INH SCH (21:00)
[2021-11-28] MEDS: Albumin 25% 25 GM/100 ML BOT IVPB SCH ×2 (00:15→06:04)
[2021-11-28] MEDS: Bumetanide 1 MG TAB PO SCH ×2 (06:03→17:49)
[2021-11-28] MEDS: Levothyroxine Sodium 88 MCG TAB PO SCH (06:03)
[2021-11-28 06:11] LABS: Anion Gap 17 mmol/L (10-20); BUN (Urea Nitrogen) 64 mg/dL (8.4-25.7); Calc. Creatinine Clearance 55 mL/min (70-130); Calcium 9.2 mg/dL (7.8-10.44); Carbon Dioxide 25 mmol/L (23-31); Chloride 98 mmol/L (98-107); Glucose 89 mg/dL (83-110); Sodium 137 mmol/L (136-145)
[2021-11-28 06:19] LABS: Potassium 2.6 mmol/L (3.5-5.1)
[2021-11-28 06:31] LABS: Band 2 % (5-11); Eosinophils 5 % (0-10); Hemoglobin 8.2 g/dL (14.0-18.0); Lymphocytes 7 % (21-51); MDiff Complete? YES; Mean Corpuscular HGB CONC 33.1 g/dL (32.0-36.0); Mean Corpuscular Hemoglobin 32.7 pg (27.0-31.0); Mean Corpuscular Volume 98.8 fL (78.0-98.0); Mean Platelet Volume 7.5 fL (7.4-10.4); Monocytes 12 % (0-10); Myelocyte 1 % (0-0); Neutrophil 73 % (42-75); Platelet Count 201 thou/uL (130-400); Platelet Morphology Comment Appears Adequate; RBC Distribution Width 16.6 % (11.5-14.5); RBC Morphology Normal; Red Blood Cell (RBC) Count 2.51 mill/uL (4.70-6.10)
[2021-11-28] MEDS: Mometasone 200 MCG/Formoterol 5 MCG 120 PUFF INHALER INH SCH ×2 (07:44→19:23)
[2021-11-28] MEDS ORDERED: Electrolyte Replacement Protocol FS PRN (08:00)
[2021-11-28] MEDS: Potassium Chloride 40 MEQ in Sodium Chloride 0.9% 250 ML 250 ML IVPB SCH ×2 (10:52→15:15)
[2021-11-28] MEDS: Gabapentin 300 MG CAP PO SCH ×2 (11:16→21:05)
[2021-11-28] MEDS: Sotalol HCl 80 MG TAB PO SCH ×2 (11:17→21:06)
[2021-11-28] MEDS: Colchicine 0.6 MG TAB PO SCH (11:18)
[2021-11-28] MEDS: Pantoprazole 40 MG VIAL IVP SCH ×2 (11:19→21:06)
[2021-11-28] MEDS: Allopurinol 100 MG TAB PO SCH (11:19)
[2021-11-28] MEDS ORDERED: Potassium Chloride 20 MEQ TAB PO SCH (18:30)
[2021-11-28] MEDS: Tamsulosin HCl 0.4 MG CAP PO SCH (21:05)
[2021-11-28] MEDS: Montelukast Sodium 10 mg Tablet PO SCH (21:06)
[2021-11-29 04:23] LABS: Anion Gap 16 mmol/L (10-20); BUN (Urea Nitrogen) 54 mg/dL (8.4-25.7); Calc. Creatinine Clearance 63 mL/min (70-130); Calcium 9.4 mg/dL (7.8-10.44); Carbon Dioxide 25 mmol/L (23-31); Chloride 98 mmol/L (98-107); Glucose 93 mg/dL (83-110); Sodium 136 mmol/L (136-145)
[2021-11-29] MEDS ORDERED: Potassium Chloride 20 MEQ TAB PO SCH (04:30)
[2021-11-29 04:32] LABS: Band 1 % (5-11); Eosinophils 2 % (0-10); Hemoglobin 8.2 g/dL (14.0-18.0); Hypochromia SLIGHT = 6-15 cells (100X) (0-5/hpf); Lymphocytes 14 % (21-51); MDiff Complete? YES; Mean Corpuscular HGB CONC 34.1 g/dL (32.0-36.0); Mean Corpuscular Hemoglobin 34.1 pg (27.0-31.0); Mean Corpuscular Volume 99.8 fL (78.0-98.0); Mean Platelet Volume 7.2 fL (7.4-10.4); Monocytes 23 % (0-10); Neutrophil 60 % (42-75); Platelet Count 177 thou/uL (130-400); Platelet Morphology Comment Appears Adequate; RBC Distribution Width 16.8 % (11.5-14.5); Red Blood Cell (RBC) Count 2.42 mill/uL (4.70-6.10); White Blood Cell (WBC) Count 6.9 thou/uL (4.8-10.8)
[2021-11-29] MEDS: Levothyroxine Sodium 88 MCG TAB PO SCH (05:00)
[2021-11-29] MEDS: Mometasone 200 MCG/Formoterol 5 MCG 120 PUFF INHALER INH SCH ×2 (07:08→19:14)
[2021-11-29] MEDS ORDERED: Spironolactone 25 MG TAB PO SCH (07:45)
[2021-11-29] MEDS: Potassium Chloride 20 MEQ in Premix Bag 1 BAG IVPB SCH ×2 (08:49→11:55)
[2021-11-29] MEDS ORDERED: Potassium Chloride 40 MEQ in Premix Bag 1 BAG IVPB SCH (09:00)
[2021-11-29 11:19] LABS: Anion Gap 17 mmol/L (10-20); BUN (Urea Nitrogen) 53 mg/dL (8.4-25.7); Calc. Creatinine Clearance 65 mL/min (70-130); Calcium 9.3 mg/dL (7.8-10.44); Carbon Dioxide 25 mmol/L (23-31); Chloride 99 mmol/L (98-107); Glucose 94 mg/dL (83-110); Potassium 3.8 mmol/L (3.5-5.1); Sodium 137 mmol/L (136-145)
[2021-11-29] MEDS ORDERED: PHENYLEPHRINE-NS 100 MCG/ML 10 ML SYRINGE ONE (13:20)
[2021-11-29] MEDS ORDERED: ePHEDrine 50 MG/ML VIAL ONE (13:20)
[2021-11-29] MEDS ORDERED: Lidocaine 1% PF 5 ML VIAL ONE (13:20)
[2021-11-29] MEDS ORDERED: PROPOFOL 200 MG/20 ML VIAL ONE (13:20)
[2021-11-29] MEDS ORDERED: Fentanyl 100 MCG/2 ML VIAL ONE (13:21)
[2021-11-29] MEDS: Pantoprazole 40 MG VIAL IVP SCH ×2 (15:30→21:08)
[2021-11-29] MEDS: Sotalol HCl 80 MG TAB PO SCH ×2 (15:30→21:09)
[2021-11-29] MEDS: Gabapentin 300 MG CAP PO SCH ×2 (15:30→21:11)
[2021-11-29] MEDS: Bumetanide 1 MG TAB PO SCH ×2 (15:30→15:55)
[2021-11-29] MEDS: Colchicine 0.6 MG TAB PO SCH (15:55)
[2021-11-29] MEDS: Allopurinol 100 MG TAB PO SCH (15:55)
[2021-11-29] MEDS: Montelukast Sodium 10 mg Tablet PO SCH (21:12)
[2021-11-29] MEDS: Tamsulosin HCl 0.4 MG CAP PO SCH (21:12)
[2021-11-29] MEDS: Acetaminophen 325 MG TAB PO PRN (22:00)
[2021-11-30 04:39] LABS: Anisocytosis SLIGHT = 6-15 cells (100X) (0-5/hpf); Band 8 % (5-11); Eosinophils 4 % (0-10); Hemoglobin 7.6 g/dL (14.0-18.0); Lymphocytes 5 % (21-51); MDiff Complete? YES; Macrocytosis MODERATE=16-30 cells (100X) (0-5/hpf); Mean Corpuscular HGB CONC 34.4 g/dL (32.0-36.0); Mean Corpuscular Hemoglobin 34.4 pg (27.0-31.0); Mean Platelet Volume 7.3 fL (7.4-10.4); Monocytes 11 % (0-10); Neutrophil 71 % (42-75); Ovalocytes SLIGHT = 2-5 cells (100X) (0-1/hpf); Platelet Count 170 thou/uL (130-400); Platelet Morphology Comment Appears Adequate; RBC Distribution Width 16.2 % (11.5-14.5); Red Blood Cell (RBC) Count 2.21 mill/uL (4.70-6.10); White Blood Cell (WBC) Count 8.2 thou/uL (4.8-10.8)
[2021-11-30 04:54] LABS: Anion Gap 14 mmol/L (10-20); BUN (Urea Nitrogen) 49 mg/dL (8.4-25.7); Calc. Creatinine Clearance 63 mL/min (70-130); Calcium 8.6 mg/dL (7.8-10.44); Carbon Dioxide 25 mmol/L (23-31); Chloride 96 mmol/L (98-107); Glucose 99 mg/dL (83-110); Potassium 3.5 mmol/L (3.5-5.1); Sodium 131 mmol/L (136-145)
[2021-11-30] MEDS: Levothyroxine Sodium 88 MCG TAB PO SCH (06:08)
[2021-11-30] MEDS: Mometasone 200 MCG/Formoterol 5 MCG 120 PUFF INHALER INH SCH ×2 (06:40→18:44)
[2021-11-30] MEDS: Allopurinol 100 MG TAB PO SCH (09:47)
[2021-11-30] MEDS: Spironolactone 25 MG TAB PO SCH (09:47)
[2021-11-30] MEDS: Colchicine 0.6 MG TAB PO SCH (09:47)
[2021-11-30] MEDS: Potassium Chloride 20 MEQ in Premix Bag 1 BAG IVPB SCH ×2 (09:47→12:34)
[2021-11-30] MEDS: Gabapentin 300 MG CAP PO SCH ×2 (09:47→20:37)
[2021-11-30] MEDS: Bumetanide 1 MG TAB PO SCH ×2 (09:47→16:45)
[2021-11-30] MEDS: Sotalol HCl 80 MG TAB PO SCH ×2 (09:48→20:36)
[2021-11-30 17:17] LABS: Hemoglobin 8.6 g/dL (14.0-18.0)
[2021-11-30] MEDS: Tamsulosin HCl 0.4 MG CAP PO SCH (20:38)
[2021-11-30] MEDS: Montelukast Sodium 10 mg Tablet PO SCH (20:38)
[2021-12-01] MEDS: Acetaminophen 325 MG TAB PO PRN (01:58)
[2021-12-01 04:31] LABS: Anion Gap 15 mmol/L (10-20); BUN (Urea Nitrogen) 53 mg/dL (8.4-25.7); Calc. Creatinine Clearance 50 mL/min (70-130); Calcium 8.3 mg/dL (7.8-10.44); Carbon Dioxide 24 mmol/L (23-31); Chloride 93 mmol/L (98-107); Glucose 109 mg/dL (83-110); Potassium 3.9 mmol/L (3.5-5.1); Sodium 128 mmol/L (136-145)
[2021-12-01 05:10] LABS: Eosinophils 1 % (0-10); Hemoglobin 7.5 g/dL (14.0-18.0); Hypochromia SLIGHT = 6-15 cells (100X) (0-5/hpf); Lymphocytes 39 % (21-51); MDiff Complete? YES; Mean Corpuscular HGB CONC 33.7 g/dL (32.0-36.0); Mean Corpuscular Hemoglobin 33.8 pg (27.0-31.0); Mean Platelet Volume 7.7 fL (7.4-10.4); Monocytes 16 % (0-10); Neutrophil 44 % (42-75); Platelet Count 165 thou/uL (130-400); Platelet Morphology Comment Appears Adequate; RBC Distribution Width 15.8 % (11.5-14.5); Red Blood Cell (RBC) Count 2.21 mill/uL (4.70-6.10); White Blood Cell (WBC) Count 5.9 thou/uL (4.8-10.8)
[2021-12-01] MEDS: Levothyroxine Sodium 88 MCG TAB PO SCH (06:04)
[2021-12-01] MEDS: Mometasone 200 MCG/Formoterol 5 MCG 120 PUFF INHALER INH SCH (07:01)
[2021-12-01] MEDS ORDERED: Iron Polysaccharides Complex 150 MG CAP PO SCH (08:00)
[2021-12-01] MEDS: Bumetanide 1 MG TAB PO SCH (09:42)
[2021-12-01] MEDS: Sotalol HCl 80 MG TAB PO SCH (09:50)
[2021-12-01] MEDS: Gabapentin 300 MG CAP PO SCH (09:51)
[2021-12-01] MEDS: Colchicine 0.6 MG TAB PO SCH (09:51)
[2021-12-01] MEDS: Allopurinol 100 MG TAB PO SCH (09:51)
[2021-12-01] MEDS: Spironolactone 25 MG TAB PO SCH (09:51)
[2021-12-01 15:48] LABS: Hemoglobin 8.5 g/dL (14.0-18.0); Mean Corpuscular HGB CONC 32.6 g/dL (32.0-36.0); Mean Corpuscular Hemoglobin 32.6 pg (27.0-31.0); Mean Platelet Volume 7.2 fL (7.4-10.4); Platelet Count 161 thou/uL (130-400); White Blood Cell (WBC) Count 5.8 thou/uL (4.8-10.8)
[2021-12-01 16:04] LABS: Band 4 % (5-11); Eosinophils 3 % (0-10); Lymphocytes 5 % (21-51); MDiff Complete? YES; Macrocytosis SLIGHT = 6-15 cells (100X) (0-5/hpf); Monocytes 10 % (0-10); Neutrophil 77 % (42-75); Ovalocytes SLIGHT = 2-5 cells (100X) (0-1/hpf); Platelet Morphology Comment Appears Adequate; Polychromasia SLIGHT = 2-3 cells (100X) (0-2/hpf)
[2021-12-01] MEDS ORDERED: Bumetanide 1 MG TAB PO SCH (16:30)
[2021-12-01 17:00] VITALS: TEMP 97.4
[2021-12-01 17:22] VITALS: BP 111/58
== END 2021-12-01 17:32 | disposition home health service (06) | DRG 812 ==
LOC: ERS 13:21 → ERHOLD 15:25 → CCU 21:17 → 2NO 11-26 17:48
PROVIDERS: ADMIT Family Medicine; ATTEND Internal Medicine
PROC: 30233N1 Transfusion of Nonautologous Red Blood Cells into Peripheral Vein, Percutaneous Approach (ICD-10-PCS; 2021-11-26)
PROC: 0DJ08ZZ Inspection of Upper Intestinal Tract, Via Natural or Artificial Opening Endoscopic (ICD-10-PCS; principal; 2021-11-29)
PROC: 0DBL8ZZ Excision of Transverse Colon, Via Natural or Artificial Opening Endoscopic (ICD-10-PCS; 2021-11-29)
PROC: 0W3P8ZZ Control Bleeding in Gastrointestinal Tract, Via Natural or Artificial Opening Endoscopic (ICD-10-PCS; 2021-11-29)
DX: D62 Acute posthemorrhagic anemia (principal); N17.9 Acute kidney failure, unspecified; I42.8 Other cardiomyopathies; I47.1 Supraventricular tachycardia; R18.8 Other ascites; E87.1 Hypo-osmolality and hyponatremia; I13.0 Hypertensive heart and chronic kidney disease with heart failure and stage 1 through stage 4 chronic kidney disease, or unspecified chronic kidney disease; E86.9 Volume depletion, unspecified; I95.9 Hypotension, unspecified; R19.7 Diarrhea, unspecified; E87.6 Hypokalemia; I25.10 Atherosclerotic heart disease of native coronary artery without angina pectoris; I48.91 Unspecified atrial fibrillation; I27.20 Pulmonary hypertension, unspecified; N18.32 Chronic kidney disease, stage 3b; G62.9 Polyneuropathy, unspecified; S51.012A Laceration without foreign body of left elbow, initial encounter; E03.9 Hypothyroidism, unspecified; G47.33 Obstructive sleep apnea (adult) (pediatric); K25.9 Gastric ulcer, unspecified as acute or chronic, without hemorrhage or perforation; K64.4 Residual hemorrhoidal skin tags; D12.3 Benign neoplasm of transverse colon; K57.90 Diverticulosis of intestine, part unspecified, without perforation or abscess without bleeding; M10.9 Gout, unspecified; S09.8XXA Other specified injuries of head, initial encounter; R79.89 Other specified abnormal findings of blood chemistry; I50.9 Heart failure, unspecified; Z20.822 Contact with and (suspected) exposure to COVID-19; Z96.641 Presence of right artificial hip joint; Z79.02 Long term (current) use of antithrombotics/antiplatelets; Z79.899 Other long term (current) drug therapy; Z79.01 Long term (current) use of anticoagulants; Z79.890 Hormone replacement therapy; Z95.5 Presence of coronary angioplasty implant and graft; Z98.890 Other specified postprocedural states; Z95.1 Presence of aortocoronary bypass graft; Z72.89 Other problems related to lifestyle; Z80.1 Family history of malignant neoplasm of trachea, bronchus and lung; Z82.5 Family history of asthma and other chronic lower respiratory diseases; Z82.49 Family history of ischemic heart disease and other diseases of the circulatory system
CPT/HCPCS: 36415; 36430; 70450; 71045; 74176; 80048; 80053; 81001; 82553; 83690; 83735; 84100; 84484; 85025; 86850; 86900; 86901; 88305; 93005; 93306; 94760; 96374; 96375; C1776; C9113; J2704; J3010; J3475; J3480; J3490; J7050; P9016; P9047; U0003; U0005

== ENCOUNTER 2022-06-26 15:39 | Inpatient (IN) | payer MEDICARE ==
[~2022-06-26 15:39] MED LIST: Iopamidol-370 76% 500 ML 1 ML ONE
[2022-06-26 16:27] LABS: Hemoglobin 8.9 g/dL (14.0-18.0); Mean Corpuscular HGB CONC 31.6 g/dL (32.0-36.0); Mean Corpuscular Hemoglobin 34.2 pg (27.0-31.0); Mean Platelet Volume 7.7 fL (7.4-10.4); Platelet Count 246 10x3/uL (130-400); RBC Distribution Width 16.7 % (11.5-14.5); Red Blood Cell (RBC) Count 2.59 mill/uL (4.70-6.10); White Blood Cell (WBC) Count 20.3 10x3/uL (4.8-10.8)
[2022-06-26 16:39] LABS: INR-International Normal Ratio 1.2
[2022-06-26 16:42] LABS: Anisocytosis SLIGHT = 6-15 cells (100X) (0-5/hpf); Band 16 % (5-11); Lymphocytes 3 % (21-51); MDiff Complete? YES; Macrocytosis SLIGHT = 6-15 cells (100X) (0-5/hpf); Metamyelocyte 1 % (0-0); Monocytes 7 % (0-10); Neutrophil 72 % (42-75); Platelet Morphology Comment Appears Adequate; Polychromasia SLIGHT = 2-3 cells (100X) (0-2/hpf); Reactive Lymphocytes 1 % (0-10)
[2022-06-26 16:47] LABS: ALT (SGPT) 16 U/L (8-55); AST (SGOT) 28 U/L (5-34); Albumin 3.4 g/dL (3.4-4.8); Alkaline Phosphatase 173 U/L (40-110); Anion Gap 17 mmol/L (10-20); BUN (Urea Nitrogen) 42 mg/dL (8.4-25.7); Bilirubin, Total 1.3 mg/dL (0.2-1.2); Calc. Creatinine Clearance 0 mL/min (70-130); Calcium 8.4 mg/dL (7.8-10.44); Carbon Dioxide 21 mmol/L (23-31); Chloride 101 mmol/L (98-107); Estimated GFR 41; Globulin 2.8 g/dL (2.4-3.5); Glucose 87 mg/dL (83-110); Potassium 3.9 mmol/L (3.5-5.1); Protein, Total 6.2 g/dL (5.8-8.1); Sodium 135 mmol/L (136-145)
[2022-06-26] MEDS ORDERED: Cefepime 2 GM VIAL ONE (19:14)
[2022-06-26] MEDS ORDERED: Acetaminophen 325 MG TAB ONE (19:48)
[2022-06-26 20:10] LABS: Bilirubin Negative (Negative); Blood, Urine Negative (Negative); Clarity Clear (Clear); Glucose, Urine (Dipstick) Normal (Negative); Ketone, Urine Negative (Negative); Leukocyte Negative Leu/uL (Negative); Nitrite Negative (Negative); Protein, Urine (Dipstick) Negative (Neg-Trace); Specific Gravity, Urine 1.013 (1.002-1.036); Urobilinogen Normal mg/dL (Less than 2)
[2022-06-26] MEDS ORDERED: Vancomycin 1 GM/200 ML (FROZEN) BAG ONE (21:46)
[2022-06-26 23:37] LABS: SARS-CoV-2 NAA Rapid Test Not Detected (NotDetected)
[2022-06-27] MEDS ORDERED: Heparin 25,000 units/D5W 500 ML IVPB SCH (02:15)
[2022-06-27] MEDS ORDERED: Heparin 10,000 UNITS/ 10 ML VIAL SLOW IVP SCH (02:15)
[2022-06-27 02:34] VITALS: BMI 30.1
[2022-06-27 02:49] LABS: Hemoglobin 9.1 g/dL (14.0-18.0); Platelet Count 243 10x3/uL (130-400)
[2022-06-27] MEDS ORDERED: Calcium Carbonate 500 MG ChewTAB PO PRN (03:13)
[2022-06-27] MEDS ORDERED: Ondansetron ODT 4 MG TAB PO PRN (03:13)
[2022-06-27] MEDS ORDERED: Mometasone/Formoterol 200/5 60 PUFF INH PRN (03:50)
[2022-06-27] MEDS ORDERED: Heparin 25,000 units/D5W 500 ML ONE (07:37)
[2022-06-27] MEDS ORDERED: Heparin 10,000 UNITS/ 10 ML VIAL ONE (07:37)
[2022-06-27] MEDS: Spironolactone 25 MG TAB PO SCH (07:52)
[2022-06-27] MEDS: Levothyroxine Sodium 88 MCG TAB PO SCH (07:52)
[2022-06-27] MEDS: Allopurinol 100 MG TAB PO SCH (08:06)
[2022-06-27] MEDS: Bumetanide 1 MG TAB PO SCH ×2 (08:06→20:51)
[2022-06-27] MEDS: Tamsulosin HCl 0.4 MG CAP PO SCH ×2 (08:07→20:52)
[2022-06-27] MEDS: Acetaminophen 325 MG TAB PO PRN ×2 (08:08→18:29)
[2022-06-27] MEDS ORDERED: Acetaminophen 325 MG TAB ONE (08:09)
[2022-06-27] MEDS ORDERED: Famotidine 20 MG TAB PO SCH (09:00)
[2022-06-27] MEDS ORDERED: cefTRIAXone\\ROCEPHIN 1 GM VIAL ONE (09:43)
[2022-06-27] MEDS: cefTRIAXone\\ROCEPHIN 1 GM in Sodium Chloride 0.9% 100 ML IVPB SCH (09:49)
[2022-06-27 10:43] LABS: PTT Greater than 250.0 sec (22.9-36.1)
[2022-06-27] MEDS: Gabapentin 300 MG CAP PO SCH ×2 (16:47→20:52)
[2022-06-27] MEDS ORDERED: traMADol HCl 50 MG TAB PO SCH (18:45)
[2022-06-27] MEDS: Cholecalciferol 1,000 UNITS (25 MCG) TAB PO SCH (20:52)
[2022-06-27] MEDS: Montelukast Sodium 10 mg Tablet PO SCH (20:52)
[2022-06-28 04:57] LABS: #Eosinphils 0.5 thou/uL (0.0-0.7); #Lymphocytes 1.2 thou/uL (1.20-3.40); #Monocytes 1.6 thou/uL (0.11-0.59); #Neutrophils 14.2 thou/uL (1.40-6.50); %Basophils 0.2 % (0.0-1.0); %Eosinophils 2.8 % (0.0-10.0); %Neutrophils 80.9 % (42.0-75.0); Hemoglobin 7.9 g/dL (14.0-18.0); Mean Corpuscular HGB CONC 32.6 g/dL (32.0-36.0); Mean Corpuscular Hemoglobin 35.3 pg (27.0-31.0); Mean Platelet Volume 8.1 fL (7.4-10.4); Platelet Count 228 10x3/uL (130-400); RBC Distribution Width 16.2 % (11.5-14.5); Red Blood Cell (RBC) Count 2.24 mill/uL (4.70-6.10); White Blood Cell (WBC) Count 17.6 10x3/uL (4.8-10.8)
[2022-06-28 05:18] LABS: ALT (SGPT) 9 U/L (8-55); AST (SGOT) 18 U/L (5-34); Albumin 2.7 g/dL (3.4-4.8); Alkaline Phosphatase 161 U/L (40-110); Anion Gap 13 mmol/L (10-20); BUN (Urea Nitrogen) 45 mg/dL (8.4-25.7); Bilirubin, Total 0.9 mg/dL (0.2-1.2); Calc. Creatinine Clearance 53 mL/min (70-130); Calcium 8.2 mg/dL (7.8-10.44); Carbon Dioxide 22 mmol/L (23-31); Chloride 100 mmol/L (98-107); Estimated GFR 38; Globulin 2.7 g/dL (2.4-3.5); Glucose 99 mg/dL (83-110); Potassium 3.6 mmol/L (3.5-5.1); Protein, Total 5.4 g/dL (5.8-8.1); Sodium 131 mmol/L (136-145)
[2022-06-28] MEDS: Levothyroxine Sodium 88 MCG TAB PO SCH (05:25)
[2022-06-28] MEDS ORDERED: Bumetanide 1 MG TAB PO SCH (09:45)
[2022-06-28] MEDS ORDERED: Apixaban 5 MG TAB PO SCH (10:00)
[2022-06-28] MEDS: Spironolactone 25 MG TAB PO SCH (10:21)
[2022-06-28] MEDS: Ascorbic Acid 500 mg Chewable Tablet PO SCH (10:22)
[2022-06-28] MEDS: Allopurinol 100 MG TAB PO SCH (10:22)
[2022-06-28] MEDS: Cholecalciferol 1,000 UNITS (25 MCG) TAB PO SCH ×2 (10:23→20:17)
[2022-06-28] MEDS: Cyanocobalamin (Vitamin B-12) 1,000 MCG TAB PO SCH (10:25)
[2022-06-28] MEDS: Gabapentin 300 MG CAP PO SCH ×3 (10:26→20:18)
[2022-06-28] MEDS: Magnesium Oxide 400 MG TAB PO SCH (10:27)
[2022-06-28] MEDS: Folic Acid/Vit B Comp W-C PO SCH (10:28)
[2022-06-28] MEDS: Tamsulosin HCl 0.4 MG CAP PO SCH ×2 (10:28→20:18)
[2022-06-28] MEDS: cefTRIAXone\\ROCEPHIN 1 GM in Sodium Chloride 0.9% 100 ML IVPB SCH (10:33)
[2022-06-28] MEDS ORDERED: Docusate 100 MG CAP PO SCH (15:00)
[2022-06-28] MEDS ORDERED: Polyethylene Glycol 3350 17 GM Packet PO SCH (15:00)
[2022-06-28] MEDS: Bumetanide 1 MG TAB PO SCH ×2 (15:24→18:08)
[2022-06-28] MEDS: traMADol HCl 50 MG TAB PO PRN ×2 (17:17→23:11)
[2022-06-28] MEDS: Apixaban 5 MG TAB PO SCH (20:17)
[2022-06-28] MEDS: Acetaminophen 325 MG TAB PO PRN (20:18)
[2022-06-28] MEDS: Montelukast Sodium 10 mg Tablet PO SCH (20:18)
[2022-06-28] MEDS: Sildenafil Citrate 20 MG TAB PO SCH (22:21)
[2022-06-29 03:58] LABS: Hemoglobin 7.2 g/dL (14.0-18.0); Mean Corpuscular HGB CONC 33.1 g/dL (32.0-36.0); Mean Corpuscular Hemoglobin 34.9 pg (27.0-31.0); Mean Platelet Volume 8.1 fL (7.4-10.4); Platelet Count 205 10x3/uL (130-400); RBC Distribution Width 15.7 % (11.5-14.5); Red Blood Cell (RBC) Count 2.05 mill/uL (4.70-6.10); White Blood Cell (WBC) Count 11.9 10x3/uL (4.8-10.8)
[2022-06-29 04:27] LABS: Anion Gap 13 mmol/L (10-20); BUN (Urea Nitrogen) 50 mg/dL (8.4-25.7); Calc. Creatinine Clearance 47 mL/min (70-130); Calcium 8.2 mg/dL (7.8-10.44); Carbon Dioxide 20 mmol/L (23-31); Chloride 98 mmol/L (98-107); Estimated GFR 33; Glucose 90 mg/dL (83-110); Potassium 3.4 mmol/L (3.5-5.1); Sodium 128 mmol/L (136-145)
[2022-06-29] MEDS: Apixaban 5 MG TAB PO SCH (09:25)
[2022-06-29] MEDS: Gabapentin 300 MG CAP PO SCH ×3 (09:25→23:50)
[2022-06-29] MEDS: Magnesium Oxide 400 MG TAB PO SCH (09:27)
[2022-06-29] MEDS: Ascorbic Acid 500 mg Chewable Tablet PO SCH (09:28)
[2022-06-29] MEDS: Cyanocobalamin (Vitamin B-12) 1,000 MCG TAB PO SCH (09:28)
[2022-06-29] MEDS: Colchicine 0.6 MG TAB PO SCH (09:29)
[2022-06-29] MEDS: Bumetanide 1 MG TAB PO SCH ×2 (09:29→15:49)
[2022-06-29] MEDS: Spironolactone 25 MG TAB PO SCH (09:31)
[2022-06-29] MEDS: Folic Acid/Vit B Comp W-C PO SCH (09:31)
[2022-06-29] MEDS: Levothyroxine Sodium 88 MCG TAB PO SCH (09:31)
[2022-06-29] MEDS: Tamsulosin HCl 0.4 MG CAP PO SCH ×2 (09:32→23:50)
[2022-06-29] MEDS: Allopurinol 100 MG TAB PO SCH (09:32)
[2022-06-29] MEDS: cefTRIAXone\\ROCEPHIN 1 GM in Sodium Chloride 0.9% 100 ML IVPB SCH (09:47)
[2022-06-29] MEDS: Cholecalciferol 1,000 UNITS (25 MCG) TAB PO SCH ×2 (09:57→23:51)
[2022-06-29] MEDS: Sildenafil Citrate 20 MG TAB PO SCH ×3 (09:57→23:50)
[2022-06-29] MEDS: traMADol HCl 50 MG TAB PO PRN (10:53)
[2022-06-29 13:48] LABS: Hemoglobin 7.5 g/dL (14.0-18.0)
[2022-06-29] MEDS: Montelukast Sodium 10 mg Tablet PO SCH (23:50)
[2022-06-29] MEDS: Senokot S 8.6-50 MG TAB PO PRN (23:50)
[2022-06-30 04:33] LABS: Hemoglobin 7.4 g/dL (14.0-18.0); Mean Corpuscular HGB CONC 33.3 g/dL (32.0-36.0); Mean Platelet Volume 7.8 fL (7.4-10.4); Platelet Count 216 10x3/uL (130-400); RBC Distribution Width 15.5 % (11.5-14.5); Red Blood Cell (RBC) Count 2.11 mill/uL (4.70-6.10); White Blood Cell (WBC) Count 8.8 10x3/uL (4.8-10.8)
[2022-06-30 04:50] LABS: Anion Gap 12 mmol/L (10-20); BUN (Urea Nitrogen) 54 mg/dL (8.4-25.7); Calc. Creatinine Clearance 47 mL/min (70-130); Calcium 8.3 mg/dL (7.8-10.44); Carbon Dioxide 23 mmol/L (23-31); Chloride 96 mmol/L (98-107); Estimated GFR 34; Glucose 87 mg/dL (83-110); Potassium 3.4 mmol/L (3.5-5.1); Sodium 128 mmol/L (136-145)
[2022-06-30] MEDS ORDERED: Sodium Bicarbonate 2.5 MEQ/5 ML VIAL ONE (07:49)
[2022-06-30] MEDS ORDERED: Lidocaine 1% PF 5 ML VIAL ONE (07:49)
[2022-06-30] MEDS: Spironolactone 25 MG TAB PO SCH (09:10)
[2022-06-30] MEDS: Bumetanide 1 MG TAB PO SCH ×2 (09:11→16:50)
[2022-06-30] MEDS: Allopurinol 100 MG TAB PO SCH (09:11)
[2022-06-30] MEDS: Ascorbic Acid 500 mg Chewable Tablet PO SCH (09:11)
[2022-06-30] MEDS: Cholecalciferol 1,000 UNITS (25 MCG) TAB PO SCH ×2 (09:12→23:26)
[2022-06-30] MEDS: Colchicine 0.6 MG TAB PO SCH (09:13)
[2022-06-30] MEDS: Cyanocobalamin (Vitamin B-12) 1,000 MCG TAB PO SCH (09:13)
[2022-06-30] MEDS: Gabapentin 300 MG CAP PO SCH ×3 (09:15→23:24)
[2022-06-30] MEDS: Folic Acid/Vit B Comp W-C PO SCH (09:15)
[2022-06-30] MEDS: Sildenafil Citrate 20 MG TAB PO SCH ×3 (09:16→23:26)
[2022-06-30] MEDS: Magnesium Oxide 400 MG TAB PO SCH (09:16)
[2022-06-30] MEDS: Levothyroxine Sodium 88 MCG TAB PO SCH (09:16)
[2022-06-30] MEDS: Tamsulosin HCl 0.4 MG CAP PO SCH ×2 (09:17→23:25)
[2022-06-30] MEDS ORDERED: Albumin 25% 25 GM/100 ML BOT IVPB SCH (12:00)
[2022-06-30] MEDS: cefTRIAXone\\ROCEPHIN 1 GM in Sodium Chloride 0.9% 100 ML IVPB SCH (12:09)
[2022-06-30] MEDS: traMADol HCl 50 MG TAB PO PRN ×2 (12:53→23:25)
[2022-06-30] MEDS ORDERED: VANCOMYCIN 2 GRAM/500 ML BAG 2 GM in Premix Bag 1 BAG IVPB SCH (14:45)
[2022-06-30] MEDS: Acetaminophen 325 MG TAB PO PRN (17:03)
[2022-06-30 17:54] LABS: RBC Count-Automated (BF) 1123 /cu.mm; WBC/Nucleated-Auto (BF) 47 /cu.mm
[2022-06-30 18:11] LABS: BF Color Yellow; Body Fluid Source Paracentesis Fluid; Clarity Hazy (Clear); Tube # EDTA
[2022-06-30 18:23] LABS: BF Segmented Neutrophils 15 %; Cell Count Non Hematic 36 %; Eosinophils 3 %; Lymphocytes 46 %
[2022-06-30] MEDS: Montelukast Sodium 10 mg Tablet PO SCH (23:25)
[2022-06-30] MEDS: Apixaban 5 MG TAB PO SCH (23:25)
[2022-06-30] MEDS: Senokot S 8.6-50 MG TAB PO PRN (23:25)
[2022-07-01 04:59] VITALS: TEMP 97.4
[2022-07-01 05:03] LABS: Hemoglobin 7.2 g/dL (14.0-18.0); Mean Corpuscular HGB CONC 33.7 g/dL (32.0-36.0); Mean Corpuscular Hemoglobin 35.3 pg (27.0-31.0); Mean Platelet Volume 7.8 fL (7.4-10.4); Platelet Count 201 10x3/uL (130-400); RBC Distribution Width 15.6 % (11.5-14.5); Red Blood Cell (RBC) Count 2.03 mill/uL (4.70-6.10); White Blood Cell (WBC) Count 7.4 10x3/uL (4.8-10.8)
[2022-07-01] MEDS: Gabapentin 300 MG CAP PO SCH (08:35)
[2022-07-01] MEDS: Sildenafil Citrate 20 MG TAB PO SCH (08:36)
[2022-07-01] MEDS: Bumetanide 1 MG TAB PO SCH (08:36)
[2022-07-01] MEDS: Apixaban 5 MG TAB PO SCH (08:37)
[2022-07-01] MEDS: Levothyroxine Sodium 88 MCG TAB PO SCH (08:37)
[2022-07-01] MEDS: Tamsulosin HCl 0.4 MG CAP PO SCH (08:37)
[2022-07-01] MEDS: Colchicine 0.6 MG TAB PO SCH (08:38)
[2022-07-01] MEDS: Ascorbic Acid 500 mg Chewable Tablet PO SCH (08:38)
[2022-07-01] MEDS: cefTRIAXone\\ROCEPHIN 1 GM in Sodium Chloride 0.9% 100 ML IVPB SCH (08:38)
[2022-07-01] MEDS: Magnesium Oxide 400 MG TAB PO SCH (08:38)
[2022-07-01] MEDS: Folic Acid/Vit B Comp W-C PO SCH (08:38)
[2022-07-01] MEDS: Allopurinol 100 MG TAB PO SCH (08:38)
[2022-07-01 10:00] VITALS: BP 110/57
[2022-07-01] MEDS: Spironolactone 25 MG TAB PO SCH (10:34)
[2022-07-01] MEDS: Cholecalciferol 1,000 UNITS (25 MCG) TAB PO SCH (10:54)
[2022-07-01] MEDS: Cyanocobalamin (Vitamin B-12) 1,000 MCG TAB PO SCH (10:55)
[2022-07-05] MEDS ORDERED: Apixaban 5 MG TAB PO SCH (09:00)
== END 2022-07-01 12:33 | disposition home or self-care (01) | DRG 300 ==
LOC: ERS 15:39 → ERHOLD 20:29 → 2NO 06-27 17:33
PROVIDERS: ADMIT Internal Medicine; ATTEND Internal Medicine
PROC: 0W9G3ZZ Drainage of Peritoneal Cavity, Percutaneous Approach (ICD-10-PCS; principal; 2022-06-30)
DX: I82.431 Acute embolism and thrombosis of right popliteal vein (principal); Z20.822 Contact with and (suspected) exposure to COVID-19; E87.1 Hypo-osmolality and hyponatremia; I42.8 Other cardiomyopathies; L03.115 Cellulitis of right lower limb; I48.20 Chronic atrial fibrillation, unspecified; R18.8 Other ascites; K74.60 Unspecified cirrhosis of liver; K59.00 Constipation, unspecified; I27.20 Pulmonary hypertension, unspecified; N18.30 Chronic kidney disease, stage 3 unspecified; I12.9 Hypertensive chronic kidney disease with stage 1 through stage 4 chronic kidney disease, or unspecified chronic kidney disease; D53.9 Nutritional anemia, unspecified; D63.1 Anemia in chronic kidney disease; Z95.818 Presence of other cardiac implants and grafts; Z79.899 Other long term (current) drug therapy; Z79.890 Hormone replacement therapy; Z82.49 Family history of ischemic heart disease and other diseases of the circulatory system; Z80.1 Family history of malignant neoplasm of trachea, bronchus and lung; Z95.1 Presence of aortocoronary bypass graft; Z87.11 Personal history of peptic ulcer disease
CPT/HCPCS: 36415; 49083; 71275; 80048; 80053; 81003; 82042; 83605; 84157; 85014; 85018; 85025; 85027; 85049; 85060; 85610; 85730; 87040; 87070; 87205; 89051; 93005; 96374; 96375; 97139; J0692; J0696; J1644; J3370; J3370-JW; J3490; P9047; Q9967; U0002

== ENCOUNTER 2022-07-05 09:27 | Inpatient (IN) | payer MEDICARE ==
[2022-07-05 10:32] LABS: #Eosinphils 0.3 thou/uL (0.0-0.7); #Monocytes 1.3 thou/uL (0.11-0.59); #Neutrophils 10.5 thou/uL (1.40-6.50); %Basophils 0.2 % (0.0-1.0); %Lymphocytes 7.5 % (21.0-51.0); %Monocytes 9.7 % (0.0-10.0); %Neutrophils 80.5 % (42.0-75.0); Mean Corpuscular HGB CONC 32.4 g/dL (32.0-36.0); Mean Corpuscular Hemoglobin 34.7 pg (27.0-31.0); Mean Platelet Volume 7.9 fL (7.4-10.4); Platelet Count 277 10x3/uL (130-400); RBC Distribution Width 16.9 % (11.5-14.5); Red Blood Cell (RBC) Count 1.74 mill/uL (4.70-6.10); White Blood Cell (WBC) Count 13.1 10x3/uL (4.8-10.8)
[2022-07-05 10:42] LABS: INR-International Normal Ratio 3.2; Prothrombin Time 33.8 sec (12.0-14.7)
[2022-07-05 10:43] LABS: PTT 59.7 sec (22.9-36.1)
[2022-07-05] MEDS ORDERED: Pantoprazole 40 MG VIAL ONE (10:43)
[2022-07-05 10:51] LABS: ALT (SGPT) 19 U/L (8-55); AST (SGOT) 29 U/L (5-34); Albumin 3.1 g/dL (3.4-4.8); Alkaline Phosphatase 211 U/L (40-110); Anion Gap 19 mmol/L (10-20); BUN (Urea Nitrogen) 61 mg/dL (8.4-25.7); Bilirubin, Total 0.6 mg/dL (0.2-1.2); Calc. Creatinine Clearance 0 mL/min (70-130); Calcium 8.1 mg/dL (7.8-10.44); Carbon Dioxide 19 mmol/L (23-31); Chloride 104 mmol/L (98-107); Estimated GFR 31; Globulin 2.4 g/dL (2.4-3.5); Glucose 98 mg/dL (83-110); Potassium 4.6 mmol/L (3.5-5.1); Protein, Total 5.5 g/dL (5.8-8.1); Sodium 137 mmol/L (136-145)
[2022-07-05] MEDS ORDERED: Ondansetron PF 4 MG/2 ML Vial IVP PRN (12:17)
[2022-07-05 14:38] LABS: SARS-CoV-2 NAA Rapid Test Not Detected (NotDetected)
[2022-07-05] MEDS ORDERED: GoLYTELY 4,000 ml Bottle PO SCH ×2 (19:30)
[2022-07-05 20:01] VITALS: BMI 32.5
[2022-07-05] MEDS: Montelukast Sodium 10 mg Tablet PO SCH (21:09)
[2022-07-05] MEDS: Gabapentin 300 MG CAP PO SCH (21:10)
[2022-07-05] MEDS: Pantoprazole 40 MG VIAL IVP SCH (21:12)
[2022-07-05 21:35] LABS: Hemoglobin 6.9 g/dL (14.0-18.0)
[2022-07-05] MEDS: Acetaminophen 325 MG TAB PO PRN (21:56)
[2022-07-05] MEDS ORDERED: Phytonadione 5 MG TAB PO SCH (22:30)
[2022-07-06 01:59] LABS: #Basophils 0.1 thou/uL (0.0-0.2); #Eosinphils 0.2 thou/uL (0.0-0.7); #Lymphocytes 0.7 thou/uL (1.20-3.40); #Monocytes 1.3 thou/uL (0.11-0.59); #Neutrophils 11.4 thou/uL (1.40-6.50); %Basophils 0.4 % (0.0-1.0); %Eosinophils 1.7 % (0.0-10.0); %Lymphocytes 5.3 % (21.0-51.0); %Monocytes 9.5 % (0.0-10.0); %Neutrophils 83.1 % (42.0-75.0); Hemoglobin 7.7 g/dL (14.0-18.0); Mean Corpuscular Hemoglobin 35.8 pg (27.0-31.0); Mean Platelet Volume 7.7 fL (7.4-10.4); Platelet Count 265 10x3/uL (130-400); RBC Distribution Width 17.7 % (11.5-14.5); Red Blood Cell (RBC) Count 2.15 mill/uL (4.70-6.10); White Blood Cell (WBC) Count 13.8 10x3/uL (4.8-10.8)
[2022-07-06 02:22] LABS: Anion Gap 17 mmol/L (10-20); BUN (Urea Nitrogen) 62 mg/dL (8.4-25.7); Calc. Creatinine Clearance 40 mL/min (70-130); Calcium 8.5 mg/dL (7.8-10.44); Carbon Dioxide 21 mmol/L (23-31); Chloride 100 mmol/L (98-107); Estimated GFR 27; Glucose 94 mg/dL (83-110); Potassium 4.6 mmol/L (3.5-5.1); Sodium 133 mmol/L (136-145)
[2022-07-06] MEDS: Levothyroxine Sodium 88 MCG TAB PO SCH (05:13)
[2022-07-06] MEDS: Gabapentin 300 MG CAP PO SCH ×2 (08:57→20:32)
[2022-07-06] MEDS: Pantoprazole 40 MG VIAL IVP SCH ×2 (08:59→20:31)
[2022-07-06 09:38] LABS: INR-International Normal Ratio 1.8; Prothrombin Time 21.4 sec (12.0-14.7)
[2022-07-06] MEDS ORDERED: EPINEPHrine 1 MG/10 ML Abboject SYRINGE ONE (16:21)
[2022-07-06] MEDS ORDERED: PHENYLEPHRINE-NS 100 MCG/ML 10 ML SYRINGE ONE (16:21)
[2022-07-06] MEDS ORDERED: Lidocaine 1% PF 5 ML VIAL ONE (16:21)
[2022-07-06] MEDS ORDERED: ePHEDrine 50 MG/ML VIAL ONE (16:21)
[2022-07-06] MEDS ORDERED: Esmolol 100 MG/10 ML VIAL ONE (16:21)
[2022-07-06] MEDS ORDERED: PROPOFOL 200 MG/20 ML VIAL ONE (16:21)
[2022-07-06] MEDS ORDERED: Ondansetron HCl/PF 4 MG/2 ML Vial IVP PRN (17:27)
[2022-07-06] MEDS: Metoprolol Tartrate 25 MG TAB PO SCH (20:31)
[2022-07-06] MEDS: Montelukast Sodium 10 mg Tablet PO SCH (20:32)
[2022-07-06] MEDS: Tamsulosin HCl 0.4 MG CAP PO SCH (20:32)
[2022-07-06] MEDS: Acetaminophen 325 MG TAB PO PRN (22:39)
[2022-07-07] MEDS: Acetaminophen 325 MG TAB PO PRN (03:36)
[2022-07-07] MEDS: Levothyroxine Sodium 88 MCG TAB PO SCH (05:39)
[2022-07-07 06:40] LABS: #Eosinphils 0.1 thou/uL (0.0-0.7); #Lymphocytes 0.7 thou/uL (1.20-3.40); #Monocytes 1.1 thou/uL (0.11-0.59); #Neutrophils 6.8 thou/uL (1.40-6.50); %Basophils 0.3 % (0.0-1.0); %Eosinophils 1.4 % (0.0-10.0); %Lymphocytes 8.2 % (21.0-51.0); %Monocytes 12.3 % (0.0-10.0); %Neutrophils 77.8 % (42.0-75.0); Hemoglobin 6.8 g/dL (14.0-18.0); Mean Corpuscular HGB CONC 34.2 g/dL (32.0-36.0); Mean Corpuscular Hemoglobin 34.5 pg (27.0-31.0); Mean Platelet Volume 7.7 fL (7.4-10.4); Platelet Count 241 10x3/uL (130-400); RBC Distribution Width 17.8 % (11.5-14.5); Red Blood Cell (RBC) Count 1.97 mill/uL (4.70-6.10); White Blood Cell (WBC) Count 8.7 10x3/uL (4.8-10.8)
[2022-07-07 06:59] LABS: Anion Gap 17 mmol/L (10-20); BUN (Urea Nitrogen) 55 mg/dL (8.4-25.7); Calc. Creatinine Clearance 52 mL/min (70-130); Calcium 8.6 mg/dL (7.8-10.44); Carbon Dioxide 18 mmol/L (23-31); Chloride 100 mmol/L (98-107); Estimated GFR 37; Glucose 73 mg/dL (83-110); Potassium 3.4 mmol/L (3.5-5.1); Sodium 132 mmol/L (136-145)
[2022-07-07] MEDS: Gabapentin 300 MG CAP PO SCH ×2 (09:20→20:59)
[2022-07-07] MEDS: Cyanocobalamin (Vitamin B-12) 1,000 MCG TAB PO SCH (09:20)
[2022-07-07] MEDS: Metoprolol Tartrate 25 MG TAB PO SCH ×2 (09:20→20:59)
[2022-07-07] MEDS: Folic Acid/Vit B Comp W-C PO SCH (09:20)
[2022-07-07] MEDS: Pantoprazole 40 MG VIAL IVP SCH ×2 (09:20→20:58)
[2022-07-07] MEDS: Tamsulosin HCl 0.4 MG CAP PO SCH ×2 (09:21→20:59)
[2022-07-07] MEDS ORDERED: Saccharomyces boulardii 250 MG CAP PO SCH (11:45)
[2022-07-07] MEDS ORDERED: Electrolyte Replacement Protocol 1 EACH FS SCH (11:45)
[2022-07-07] MEDS ORDERED: Amoxicillin/Potassium Clav 875 MG TAB PO SCH (11:45)
[2022-07-07] MEDS ORDERED: Potassium Chloride 20 MEQ TAB PO SCH (12:30)
[2022-07-07 12:41] LABS: Magnesium 1.3 mg/dL (1.6-2.6)
[2022-07-07] MEDS ORDERED: Magnesium Sulfate In Water 4 GM in Premix Bag 1 BAG IVPB SCH (13:00)
[2022-07-07 15:15] LABS: Hemoglobin 8.2 g/dL (14.0-18.0)
[2022-07-07] MEDS: Doxycycline 100 MG CAP PO SCH (20:58)
[2022-07-07] MEDS: Amoxicillin/Potassium Clav 875 MG TAB PO SCH (20:59)
[2022-07-07] MEDS: Montelukast Sodium 10 mg Tablet PO SCH (20:59)
[2022-07-07] MEDS ORDERED: Doxycycline 100 MG CAP PO SCH (21:00)
[2022-07-08] MEDS: Levothyroxine Sodium 88 MCG TAB PO SCH (06:09)
[2022-07-08 06:37] LABS: #Eosinphils 0.3 thou/uL (0.0-0.7); #Lymphocytes 0.7 thou/uL (1.20-3.40); #Monocytes 1.3 thou/uL (0.11-0.59); %Basophils 0.5 % (0.0-1.0); %Lymphocytes 7.1 % (21.0-51.0); %Monocytes 12.1 % (0.0-10.0); %Neutrophils 77.4 % (42.0-75.0); Hemoglobin 7.8 g/dL (14.0-18.0); Mean Corpuscular HGB CONC 34.1 g/dL (32.0-36.0); Mean Corpuscular Hemoglobin 33.7 pg (27.0-31.0); Mean Platelet Volume 7.8 fL (7.4-10.4); Platelet Count 239 10x3/uL (130-400); RBC Distribution Width 17.5 % (11.5-14.5); Red Blood Cell (RBC) Count 2.31 mill/uL (4.70-6.10); White Blood Cell (WBC) Count 10.3 10x3/uL (4.8-10.8)
[2022-07-08 06:58] LABS: Anion Gap 15 mmol/L (10-20); BUN (Urea Nitrogen) 52 mg/dL (8.4-25.7); Calc. Creatinine Clearance 60 mL/min (70-130); Calcium 8.4 mg/dL (7.8-10.44); Carbon Dioxide 19 mmol/L (23-31); Chloride 97 mmol/L (98-107); Estimated GFR 44; Glucose 94 mg/dL (83-110); Magnesium 1.7 mg/dL (1.6-2.6); Potassium 3.7 mmol/L (3.5-5.1); Sodium 127 mmol/L (136-145)
[2022-07-08] MEDS ORDERED: Magnesium 2 GM/50 ML(in water) 2 GM in Premix Bag 1 BAG IVPB SCH (08:00)
[2022-07-08] MEDS: Tamsulosin HCl 0.4 MG CAP PO SCH ×2 (09:12→20:29)
[2022-07-08] MEDS: Saccharomyces boulardii 250 MG CAP PO SCH (09:12)
[2022-07-08] MEDS: Gabapentin 300 MG CAP PO SCH ×2 (09:12→20:29)
[2022-07-08] MEDS: Metoprolol Tartrate 25 MG TAB PO SCH ×2 (09:12→20:29)
[2022-07-08] MEDS: Folic Acid/Vit B Comp W-C PO SCH (09:13)
[2022-07-08] MEDS: Pantoprazole 40 MG VIAL IVP SCH ×2 (09:13→20:30)
[2022-07-08] MEDS: Amoxicillin/Potassium Clav 875 MG TAB PO SCH ×2 (09:13→20:29)
[2022-07-08] MEDS: Doxycycline 100 MG CAP PO SCH ×2 (09:14→20:30)
[2022-07-08] MEDS: Cyanocobalamin (Vitamin B-12) 1,000 MCG TAB PO SCH (09:14)
[2022-07-08 18:05] LABS: Hemoglobin 7.8 g/dL (14.0-18.0)
[2022-07-08] MEDS: Montelukast Sodium 10 mg Tablet PO SCH (20:30)
[2022-07-09] MEDS: Levothyroxine Sodium 88 MCG TAB PO SCH (05:49)
[2022-07-09] MEDS: Metoprolol Tartrate 25 MG TAB PO SCH ×2 (05:50→20:32)
[2022-07-09 07:01] LABS: #Eosinphils 0.4 thou/uL (0.0-0.7); #Lymphocytes 0.7 thou/uL (1.20-3.40); #Monocytes 1.3 thou/uL (0.11-0.59); #Neutrophils 9.1 thou/uL (1.40-6.50); %Basophils 0.3 % (0.0-1.0); %Eosinophils 3.4 % (0.0-10.0); %Lymphocytes 6.2 % (21.0-51.0); %Monocytes 11.3 % (0.0-10.0); %Neutrophils 78.8 % (42.0-75.0); Hemoglobin 7.9 g/dL (14.0-18.0); Mean Corpuscular HGB CONC 35.2 g/dL (32.0-36.0); Mean Corpuscular Volume 99.2 fl (78.0-98.0); Mean Platelet Volume 7.7 fL (7.4-10.4); Platelet Count 238 10x3/uL (130-400); RBC Distribution Width 17.1 % (11.5-14.5); Red Blood Cell (RBC) Count 2.26 mill/uL (4.70-6.10); White Blood Cell (WBC) Count 11.6 10x3/uL (4.8-10.8)
[2022-07-09 07:30] LABS: ALT (SGPT) 15 U/L (8-55); AST (SGOT) 26 U/L (5-34); Albumin 2.9 g/dL (3.4-4.8); Alkaline Phosphatase 213 U/L (40-110); Anion Gap 15 mmol/L (10-20); BUN (Urea Nitrogen) 47 mg/dL (8.4-25.7); Bilirubin, Total 0.6 mg/dL (0.2-1.2); Calc. Creatinine Clearance 63 mL/min (70-130); Calcium 8.5 mg/dL (7.8-10.44); Carbon Dioxide 19 mmol/L (23-31); Chloride 96 mmol/L (98-107); Estimated GFR 47; Globulin 2.6 g/dL (2.4-3.5); Glucose 91 mg/dL (83-110); Potassium 3.8 mmol/L (3.5-5.1); Protein, Total 5.5 g/dL (5.8-8.1); Sodium 126 mmol/L (136-145)
[2022-07-09] MEDS: Cyanocobalamin (Vitamin B-12) 1,000 MCG TAB PO SCH (08:57)
[2022-07-09] MEDS: Saccharomyces boulardii 250 MG CAP PO SCH (08:57)
[2022-07-09] MEDS: Amoxicillin/Potassium Clav 875 MG TAB PO SCH ×2 (08:57→20:32)
[2022-07-09] MEDS: Folic Acid/Vit B Comp W-C PO SCH (08:58)
[2022-07-09] MEDS: Tamsulosin HCl 0.4 MG CAP PO SCH ×2 (08:58→20:30)
[2022-07-09] MEDS: Pantoprazole 40 MG VIAL IVP SCH ×2 (08:58→20:33)
[2022-07-09] MEDS: Gabapentin 300 MG CAP PO SCH ×2 (08:58→20:31)
[2022-07-09] MEDS: Doxycycline 100 MG CAP PO SCH ×2 (09:00→20:31)
[2022-07-09] MEDS ORDERED: Lidocaine 1% (PF) 30 ML VIAL ONE (10:03)
[2022-07-09] MEDS ORDERED: Iopamidol 370 76% 50 ML VIAL FS ONE (11:08)
[2022-07-09 18:39] LABS: Hemoglobin 8.2 g/dL (14.0-18.0)
[2022-07-09] MEDS: Montelukast Sodium 10 mg Tablet PO SCH (20:31)
[2022-07-09] MEDS: Acetaminophen 325 MG TAB PO PRN (20:33)
[2022-07-10] MEDS: Levothyroxine Sodium 88 MCG TAB PO SCH (05:48)
[2022-07-10 06:36] LABS: #Eosinphils 0.3 thou/uL (0.0-0.7); #Lymphocytes 0.5 thou/uL (1.20-3.40); #Monocytes 1.2 thou/uL (0.11-0.59); #Neutrophils 6.8 thou/uL (1.40-6.50); %Basophils 0.4 % (0.0-1.0); %Eosinophils 3.4 % (0.0-10.0); %Lymphocytes 5.9 % (21.0-51.0); %Monocytes 13.1 % (0.0-10.0); %Neutrophils 77.3 % (42.0-75.0); Hemoglobin 7.4 g/dL (14.0-18.0); Mean Corpuscular HGB CONC 34.3 g/dL (32.0-36.0); Mean Corpuscular Hemoglobin 34.5 pg (27.0-31.0); Mean Platelet Volume 7.8 fL (7.4-10.4); Platelet Count 241 10x3/uL (130-400); RBC Distribution Width 17.1 % (11.5-14.5); Red Blood Cell (RBC) Count 2.15 mill/uL (4.70-6.10); White Blood Cell (WBC) Count 8.8 10x3/uL (4.8-10.8)
[2022-07-10 06:48] LABS: Anion Gap 14 mmol/L (10-20); BUN (Urea Nitrogen) 44 mg/dL (8.4-25.7); Calc. Creatinine Clearance 69 mL/min (70-130); Calcium 8.5 mg/dL (7.8-10.44); Carbon Dioxide 19 mmol/L (23-31); Chloride 98 mmol/L (98-107); Estimated GFR 52; Glucose 93 mg/dL (83-110); Magnesium 1.7 mg/dL (1.6-2.6); Phosphorus 3.6 mg/dL (2.3-4.7); Potassium 3.9 mmol/L (3.5-5.1); Sodium 127 mmol/L (136-145)
[2022-07-10 07:41] VITALS: BP 125/75; TEMP 98.1
[2022-07-10] MEDS: Cyanocobalamin (Vitamin B-12) 1,000 MCG TAB PO SCH (08:42)
[2022-07-10] MEDS: Folic Acid/Vit B Comp W-C PO SCH (08:42)
[2022-07-10] MEDS: Gabapentin 300 MG CAP PO SCH (08:42)
[2022-07-10] MEDS: Amoxicillin/Potassium Clav 875 MG TAB PO SCH (08:42)
[2022-07-10] MEDS: Doxycycline 100 MG CAP PO SCH (08:42)
[2022-07-10] MEDS: Saccharomyces boulardii 250 MG CAP PO SCH (08:43)
[2022-07-10] MEDS: Pantoprazole 40 MG VIAL IVP SCH (08:43)
[2022-07-10] MEDS: Tamsulosin HCl 0.4 MG CAP PO SCH (08:43)
[2022-07-10] MEDS: Metoprolol Tartrate 25 MG TAB PO SCH (08:43)
[2022-07-10] MEDS ORDERED: Magnesium 2 GM/50 ML(in water) 2 GM in Premix Bag 1 BAG IVPB SCH (09:00)
[2022-07-10] MEDS ORDERED: Sodium Bicarbonate 2.5 MEQ/5 ML VIAL ONE (12:48)
[2022-07-10] MEDS ORDERED: Lidocaine 1% PF 5 ML VIAL ONE (12:48)
[2022-07-10] MEDS ORDERED: Albumin 25% 200 ML ONE (14:25)
== END 2022-07-10 17:12 | disposition home or self-care (01) | DRG 378 ==
LOC: ERS 09:27 → ERHOLD 12:09 → T4-A 20:01
PROVIDERS: ADMIT Internal Medicine; ATTEND Internal Medicine
PROC: 30233N1 Transfusion of Nonautologous Red Blood Cells into Peripheral Vein, Percutaneous Approach (ICD-10-PCS; 2022-07-05)
PROC: 0W3P8ZZ Control Bleeding in Gastrointestinal Tract, Via Natural or Artificial Opening Endoscopic (ICD-10-PCS; principal; 2022-07-06)
PROC: 0DJD8ZZ Inspection of Lower Intestinal Tract, Via Natural or Artificial Opening Endoscopic (ICD-10-PCS; 2022-07-06)
PROC: 06H03DZ Insertion of Intraluminal Device into Inferior Vena Cava, Percutaneous Approach (ICD-10-PCS; 2022-07-09)
PROC: 0W9G3ZZ Drainage of Peritoneal Cavity, Percutaneous Approach (ICD-10-PCS; 2022-07-10)
DX: K31.811 Angiodysplasia of stomach and duodenum with bleeding (principal); D62 Acute posthemorrhagic anemia; R18.8 Other ascites; N17.9 Acute kidney failure, unspecified; I13.0 Hypertensive heart and chronic kidney disease with heart failure and stage 1 through stage 4 chronic kidney disease, or unspecified chronic kidney disease; K76.6 Portal hypertension; E87.1 Hypo-osmolality and hyponatremia; I82.509 Chronic embolism and thrombosis of unspecified deep veins of unspecified lower extremity; L03.115 Cellulitis of right lower limb; L03.116 Cellulitis of left lower limb; Z20.822 Contact with and (suspected) exposure to COVID-19; I48.91 Unspecified atrial fibrillation; G62.9 Polyneuropathy, unspecified; K74.60 Unspecified cirrhosis of liver; I25.10 Atherosclerotic heart disease of native coronary artery without angina pectoris; E03.9 Hypothyroidism, unspecified; J44.9 Chronic obstructive pulmonary disease, unspecified; N18.30 Chronic kidney disease, stage 3 unspecified; N40.0 Benign prostatic hyperplasia without lower urinary tract symptoms; K31.89 Other diseases of stomach and duodenum; E87.6 Hypokalemia; E83.42 Hypomagnesemia; Z96.641 Presence of right artificial hip joint; Z79.01 Long term (current) use of anticoagulants; Z95.1 Presence of aortocoronary bypass graft; Z95.5 Presence of coronary angioplasty implant and graft; Z79.890 Hormone replacement therapy; Z79.899 Other long term (current) drug therapy
CPT/HCPCS: 36415; 36430; 37191; 49083; 74177; 80048; 80053; 83735; 84100; 85025; 85610; 85730; 86850; 86900; 86901; 93005; 96374; C1769; C1880; C9113; J0171; J2001; J2704; J3475; J3490; P9016; P9047; Q9967; U0002

== ENCOUNTER 2022-08-01 19:48 | Inpatient (IN) | payer MEDICARE ==
[~2022-08-01 19:48] MED LIST changes: +Heparin 1,000 UNITS/ML VIAL ONE
[2022-08-01] MEDS ORDERED: NOREPINEPHRINE 8 MG/250 ML-D5W 250 ML ONE (20:00)
[2022-08-01 20:42] LABS: Hemoglobin 4.1 g/dL (14.0-18.0); Mean Corpuscular HGB CONC 32.5 g/dL (32.0-36.0); Mean Corpuscular Hemoglobin 34.7 pg (27.0-31.0); Mean Platelet Volume 7.6 fL (7.4-10.4); Platelet Count 183 10x3/uL (130-400); RBC Distribution Width 16.8 % (11.5-14.5); Red Blood Cell (RBC) Count 1.18 mill/uL (4.70-6.10); White Blood Cell (WBC) Count 10.1 10x3/uL (4.8-10.8)
[2022-08-01 20:49] LABS: INR-International Normal Ratio 1.5; PTT 33.8 sec (22.9-36.1); Prothrombin Time 18.4 sec (12.0-14.7)
[2022-08-01 20:54] LABS: ALT (SGPT) 11 U/L (8-55); AST (SGOT) 22 U/L (5-34); Albumin 2.5 g/dL (3.4-4.8); Alkaline Phosphatase 110 U/L (40-110); Anion Gap 14 mmol/L (10-20); BUN (Urea Nitrogen) 44 mg/dL (8.4-25.7); Bilirubin, Total 0.6 mg/dL (0.2-1.2); Calc. Creatinine Clearance 0 mL/min (70-130); Calcium 7.6 mg/dL (7.8-10.44); Carbon Dioxide 21 mmol/L (23-31); Chloride 105 mmol/L (98-107); Estimated GFR 34; Globulin 1.7 g/dL (2.4-3.5); Glucose 167 mg/dL (83-110); Iron 38 ug/dL (65-175); Iron Binding Capacity, Total 180 mcg/dL (261-462); Potassium 3.6 mmol/L (3.5-5.1); Protein, Total 4.2 g/dL (5.8-8.1); Sodium 136 mmol/L (136-145)
[2022-08-01 21:05] LABS: Anisocytosis SLIGHT = 6-15 cells (100X) (0-5/hpf); Band 2 % (5-11); Eosinophils 1 % (0-10); Lymphocytes 3 % (21-51); MDiff Complete? YES; Macrocytosis SLIGHT = 6-15 cells (100X) (0-5/hpf); Monocytes 5 % (0-10); Neutrophil 89 % (42-75); Platelet Morphology Comment Appears Adequate
[2022-08-01] MEDS ORDERED: Pantoprazole 80 MG, Admixture Fee 1 EACH in Sodium Chloride 0.9% 100 ML IVPB SCH (21:30)
[2022-08-01] MEDS ORDERED: Pantoprazole 40 MG VIAL ONE (21:53)
[2022-08-01] MEDS ORDERED: Fentanyl 100 MCG/2 ML VIAL ONE ×2 (22:21→23:13)
[2022-08-01] MEDS ORDERED: Ondansetron PF 4 MG/2 ML Vial IVP PRN (23:26)
[2022-08-01] MEDS ORDERED: Acetaminophen 325 MG TAB PO PRN (23:26)
[2022-08-01] MEDS ORDERED: Acetaminophen 650 MG Suppository PR PRN (23:26)
[2022-08-01] MEDS ORDERED: Ondansetron ODT 4 MG TAB PO PRN (23:26)
[2022-08-01 23:41] LABS: SARS-CoV-2 NAA Rapid Test Not Detected (NotDetected)
[2022-08-01] MEDS ORDERED: HumaLOG 300 UNITS/3 ML VIAL SC PRN ×2 (23:45)
[2022-08-01] MEDS ORDERED: Dextrose 5% in Water 1,000 ML IV PRN (23:45)
[2022-08-01] MEDS ORDERED: Dextrose 50% Abboject 50 ML SYRINGE SLOW IVP PRN (23:45)
[2022-08-01] MEDS ORDERED: Ipratropium/Albuterol 3 ML NEB NEB PRN (23:46)
[2022-08-02] MEDS ORDERED: NOREPINEPHRINE 8 MG/250 ML-D5W 250 ML IVPB SCH (00:30)
[2022-08-02 00:33] VITALS: BMI 30.5
[2022-08-02] MEDS: Morphine 2 MG/ML VIAL SLOW IVP PRN ×2 (02:10→14:00)
[2022-08-02 04:40] LABS: Mean Corpuscular HGB CONC 33.1 g/dL (32.0-36.0); Mean Corpuscular Hemoglobin 32.6 pg (27.0-31.0); Mean Corpuscular Volume 98.5 fl (78.0-98.0); Mean Platelet Volume 7.1 fL (7.4-10.4); Platelet Count 186 10x3/uL (130-400); RBC Distribution Width 18.2 % (11.5-14.5); Red Blood Cell (RBC) Count 2.14 mill/uL (4.70-6.10); White Blood Cell (WBC) Count 10.5 10x3/uL (4.8-10.8)
[2022-08-02 04:53] LABS: Phosphorus 4.1 mg/dL (2.3-4.7)
[2022-08-02 05:12] LABS: ALT (SGPT) 18 U/L (8-55); AST (SGOT) 54 U/L (5-34); Albumin 2.4 g/dL (3.4-4.8); Alkaline Phosphatase 113 U/L (40-110); Anion Gap 15 mmol/L (10-20); BUN (Urea Nitrogen) 48 mg/dL (8.4-25.7); Bilirubin, Total 2.7 mg/dL (0.2-1.2); Calc. Creatinine Clearance 46 mL/min (70-130); Carbon Dioxide 23 mmol/L (23-31); Chloride 103 mmol/L (98-107); Estimated GFR 35; Glucose 136 mg/dL (83-110); Magnesium 1.3 mg/dL (1.6-2.6); Potassium 3.9 mmol/L (3.5-5.1); Protein, Total 4.4 g/dL (5.8-8.1); Sodium 137 mmol/L (136-145)
[2022-08-02 05:14] LABS: MDiff Complete? YES
[2022-08-02 05:15] LABS: Band 2 % (5-11); Lymphocytes 5 % (21-51); Macrocytosis SLIGHT = 6-15 cells (100X) (0-5/hpf); Monocytes 4 % (0-10); Neutrophil 89 % (42-75)
[2022-08-02] MEDS ORDERED: Magnesium Sulfate In Water 4 GM in Premix Bag 1 BAG IVPB SCH (05:45)
[2022-08-02 08:55] LABS: Hemoglobin 7.9 g/dL (14.0-18.0)
[2022-08-02] MEDS ORDERED: Electrolyte Replacement Protocol 1 EACH FS SCH (09:30)
[2022-08-02] MEDS ORDERED: Desmopressin Acetate 4 mcg/ml (1ml Chg) 10ml Vial SC SCH (10:00)
[2022-08-02 10:56] LABS: Actual Bicarbonate (HCO3v) 24 mEq/L (22-28); Base Excess 0.3 mEq/L (-2.0 to +3.0); Calcium, Ionized (venous) 1.07 mmol/L (1.16-1.32); Chloride (VBG) 101 mmol/L (98-106); Potassium (VBG) 3.75 mmol/L (3.70-5.30); Sodium 134.2 mmol/L (133-146); pH (venous) 7.44 (7.32-7.43)
[2022-08-02] MEDS ORDERED: Folic Acid/Vit B Comp W-C PO SCH (11:00)
[2022-08-02 15:22] LABS: Hemoglobin 8.3 g/dL (14.0-18.0); Platelet Count 180 10x3/uL (130-400)
[2022-08-02] MEDS: Gabapentin 300 MG CAP PO SCH (20:54)
[2022-08-02] MEDS: Midodrine HCl 5 MG TAB PO SCH (20:54)
[2022-08-03 04:41] LABS: Hemoglobin 7.6 g/dL (14.0-18.0); Mean Corpuscular HGB CONC 34.3 g/dL (32.0-36.0); Mean Corpuscular Volume 96.3 fl (78.0-98.0); Mean Platelet Volume 7.4 fL (7.4-10.4); Platelet Count 160 10x3/uL (130-400); RBC Distribution Width 17.7 % (11.5-14.5); Red Blood Cell (RBC) Count 2.31 mill/uL (4.70-6.10)
[2022-08-03 04:43] LABS: INR-International Normal Ratio 1.1; Prothrombin Time 14.9 sec (12.0-14.7)
[2022-08-03 04:44] LABS: PTT 36.6 sec (22.9-36.1)
[2022-08-03 04:51] LABS: Phosphorus 3.3 mg/dL (2.3-4.7)
[2022-08-03 04:54] LABS: ALT (SGPT) 18 U/L (8-55); AST (SGOT) 94 U/L (5-34); Albumin 2.7 g/dL (3.4-4.8); Alkaline Phosphatase 132 U/L (40-110); Anion Gap 12 mmol/L (10-20); BUN (Urea Nitrogen) 44 mg/dL (8.4-25.7); Bilirubin, Total 1.3 mg/dL (0.2-1.2); Calc. Creatinine Clearance 51 mL/min (70-130); Calcium 8.2 mg/dL (7.8-10.44); Carbon Dioxide 24 mmol/L (23-31); Chloride 101 mmol/L (98-107); Estimated GFR 40; Globulin 2.2 g/dL (2.4-3.5); Glucose 114 mg/dL (83-110); Magnesium 2.1 mg/dL (1.6-2.6); Potassium 3.9 mmol/L (3.5-5.1); Protein, Total 4.9 g/dL (5.8-8.1); Sodium 133 mmol/L (136-145)
[2022-08-03 05:10] LABS: Anisocytosis SLIGHT = 6-15 cells (100X) (0-5/hpf); Band 1 % (5-11); Eosinophils 8 % (0-10); Lymphocytes 5 % (21-51); MDiff Complete? YES; Monocytes 13 % (0-10); Neutrophil 73 % (42-75); Platelet Morphology Comment Appears Adequate; Polychromasia SLIGHT = 2-3 cells (100X) (0-2/hpf); Stomatocytes SLIGHT = 2-5 cells (100X) (0-1/hpf)
[2022-08-03] MEDS: Levothyroxine Sodium 88 MCG TAB PO SCH (06:15)
[2022-08-03] MEDS ORDERED: Albumin 25% 25 GM/100 ML BOT IVPB SCH (08:30)
[2022-08-03] MEDS: Folic Acid/Vit B Comp W-C PO SCH (09:43)
[2022-08-03] MEDS: Midodrine HCl 5 MG TAB PO SCH ×2 (09:43→20:49)
[2022-08-03] MEDS: Gabapentin 300 MG CAP PO SCH ×2 (09:44→20:48)
[2022-08-03 10:00] LABS: Hemoglobin 7.5 g/dL (14.0-18.0)
[2022-08-03] MEDS ORDERED: Loratadine 10 MG TAB PO SCH (10:45)
[2022-08-03] MEDS: Albumin 25% 25 GM/100 ML BOT IVPB SCH ×3 (10:48→22:44)
[2022-08-03] MEDS: Tamsulosin HCl 0.4 MG CAP PO SCH (20:49)
[2022-08-03] MEDS ORDERED: Polyethylene Glycol 3350 17 GM Packet PO PRN (21:51)
[2022-08-04 03:46] LABS: INR-International Normal Ratio 1.2; PTT 32.5 sec (22.9-36.1); Prothrombin Time 15.2 sec (12.0-14.7)
[2022-08-04 04:03] LABS: ALT (SGPT) 15 U/L (8-55); AST (SGOT) 54 U/L (5-34); Albumin 3.5 g/dL (3.4-4.8); Alkaline Phosphatase 168 U/L (40-110); Anion Gap 15 mmol/L (10-20); BUN (Urea Nitrogen) 40 mg/dL (8.4-25.7); Bilirubin, Total 1.3 mg/dL (0.2-1.2); Calc. Creatinine Clearance 49 mL/min (70-130); Calcium 8.7 mg/dL (7.8-10.44); Carbon Dioxide 23 mmol/L (23-31); Chloride 97 mmol/L (98-107); Estimated GFR 38; Glucose 107 mg/dL (83-110); Potassium 4.2 mmol/L (3.5-5.1); Protein, Total 5.5 g/dL (5.8-8.1); Sodium 131 mmol/L (136-145)
[2022-08-04 04:05] LABS: Anisocytosis SLIGHT = 6-15 cells (100X) (0-5/hpf); Eosinophils 8 % (0-10); Hemoglobin 6.6 g/dL (14.0-18.0); Lymphocytes 4 % (21-51); MDiff Complete? YES; Mean Corpuscular HGB CONC 33.6 g/dL (32.0-36.0); Mean Corpuscular Hemoglobin 32.4 pg (27.0-31.0); Mean Corpuscular Volume 96.7 fl (78.0-98.0); Mean Platelet Volume 7.2 fL (7.4-10.4); Monocytes 15 % (0-10); Neutrophil 73 % (42-75); Platelet Count 139 10x3/uL (130-400); Platelet Morphology Comment Appears Adequate; RBC Distribution Width 17.1 % (11.5-14.5); Red Blood Cell (RBC) Count 2.04 mill/uL (4.70-6.10); White Blood Cell (WBC) Count 8.3 10x3/uL (4.8-10.8)
[2022-08-04] MEDS: Albumin 25% 25 GM/100 ML BOT IVPB SCH (05:46)
[2022-08-04] MEDS: Levothyroxine Sodium 88 MCG TAB PO SCH (05:46)
[2022-08-04] MEDS: Loratadine 10 MG TAB PO SCH (08:34)
[2022-08-04] MEDS: Gabapentin 300 MG CAP PO SCH ×2 (08:34→20:25)
[2022-08-04] MEDS: Folic Acid/Vit B Comp W-C PO SCH (08:35)
[2022-08-04] MEDS: Tamsulosin HCl 0.4 MG CAP PO SCH ×2 (08:35→20:25)
[2022-08-04] MEDS: Midodrine HCl 5 MG TAB PO SCH ×2 (08:35→20:25)
[2022-08-04] MEDS ORDERED: Sodium Chloride 0.9% 1,000 ML IV SCH (08:45)
[2022-08-04] MEDS: Allopurinol 100 MG TAB PO SCH (09:30)
[2022-08-04 12:52] LABS: Hemoglobin 7.9 g/dL (14.0-18.0); Platelet Count 146 10x3/uL (130-400)
[2022-08-04] MEDS ORDERED: Senokot 8.6 MG TAB PO PRN (14:26)
[2022-08-04] MEDS: Spironolactone 25 MG TAB PO SCH (14:36)
[2022-08-05] MEDS: Levothyroxine Sodium 88 MCG TAB PO SCH (05:13)
[2022-08-05 05:51] LABS: INR-International Normal Ratio 1.3; PTT 37.3 sec (22.9-36.1); Prothrombin Time 16.3 sec (12.0-14.7)
[2022-08-05 06:01] LABS: ALT (SGPT) 12 U/L (8-55); AST (SGOT) 36 U/L (5-34); Albumin 3.1 g/dL (3.4-4.8); Alkaline Phosphatase 196 U/L (40-110); Anion Gap 12 mmol/L (10-20); BUN (Urea Nitrogen) 49 mg/dL (8.4-25.7); Bilirubin, Total 2.3 mg/dL (0.2-1.2); Calc. Creatinine Clearance 51 mL/min (70-130); Calcium 8.7 mg/dL (7.8-10.44); Carbon Dioxide 25 mmol/L (23-31); Chloride 98 mmol/L (98-107); Estimated GFR 40; Globulin 2.2 g/dL (2.4-3.5); Glucose 101 mg/dL (83-110); Phosphorus 3.6 mg/dL (2.3-4.7); Potassium 4.5 mmol/L (3.5-5.1); Protein, Total 5.3 g/dL (5.8-8.1); Sodium 130 mmol/L (136-145)
[2022-08-05 06:08] LABS: Eosinophils 4 % (0-10); Hemoglobin 7.7 g/dL (14.0-18.0); Hypochromia SLIGHT = 6-15 cells (100X) (0-5/hpf); Lymphocytes 2 % (21-51); MDiff Complete? YES; Mean Corpuscular HGB CONC 34.4 g/dL (32.0-36.0); Mean Corpuscular Hemoglobin 33.4 pg (27.0-31.0); Mean Platelet Volume 7.5 fL (7.4-10.4); Monocytes 36 % (0-10); Neutrophil 57 % (42-75); Platelet Count 156 10x3/uL (130-400); Platelet Morphology Comment Appears Adequate; RBC Distribution Width 16.3 % (11.5-14.5); Reactive Lymphocytes 1 % (0-10); Red Blood Cell (RBC) Count 2.29 mill/uL (4.70-6.10); White Blood Cell (WBC) Count 8.8 10x3/uL (4.8-10.8)
[2022-08-05] MEDS ORDERED: Magnesium 2 GM/50 ML(in water) 2 GM in Premix Bag 1 BAG IVPB SCH (08:00)
[2022-08-05] MEDS: Tamsulosin HCl 0.4 MG CAP PO SCH ×2 (08:38→21:26)
[2022-08-05] MEDS: Loratadine 10 MG TAB PO SCH (08:38)
[2022-08-05] MEDS: Folic Acid/Vit B Comp W-C PO SCH (08:38)
[2022-08-05] MEDS: Midodrine HCl 5 MG TAB PO SCH ×2 (08:38→21:26)
[2022-08-05] MEDS: Allopurinol 100 MG TAB PO SCH (08:39)
[2022-08-05] MEDS: Gabapentin 300 MG CAP PO SCH ×2 (08:39→21:26)
[2022-08-05] MEDS ORDERED: Non-Formulary Item 1 EACH (Budesonide/Formoterol Fumarate [Budesonide-Formoterol 160-4.5] IH PRN (08:45)
[2022-08-05] MEDS ORDERED: Albuterol 200 PUFF (6.7GM INHALER) INH PRN (08:45)
[2022-08-05] MEDS ORDERED: Bumetanide 1 MG TAB PO SCH (12:15)
[2022-08-05] MEDS: Spironolactone 25 MG TAB PO SCH (12:43)
[2022-08-05] MEDS: Mometasone 200 MCG/Formoterol 5 MCG 120 PUFF INHALER INH SCH (19:12)
[2022-08-05] MEDS ORDERED: Bisacodyl 5 MG TAB PO SCH (21:00)
[2022-08-05] MEDS: Guaifenesin DM 100-10/5 ML UDCUP PO PRN (22:11)
[2022-08-06] MEDS: Guaifenesin DM 100-10/5 ML UDCUP PO PRN ×2 (01:55→05:33)
[2022-08-06] MEDS: Levothyroxine Sodium 88 MCG TAB PO SCH (05:33)
[2022-08-06 06:00] LABS: INR-International Normal Ratio 1.4; Prothrombin Time 17.5 sec (12.0-14.7)
[2022-08-06 06:01] LABS: PTT 42.4 sec (22.9-36.1)
[2022-08-06 06:10] LABS: Anion Gap 12 mmol/L (10-20); BUN (Urea Nitrogen) 47 mg/dL (8.4-25.7); Calc. Creatinine Clearance 63 mL/min (70-130); Carbon Dioxide 24 mmol/L (23-31); Chloride 98 mmol/L (98-107); Estimated GFR 48; Glucose 116 mg/dL (83-110); Potassium 4.3 mmol/L (3.5-5.1); Sodium 130 mmol/L (136-145)
[2022-08-06 06:36] LABS: Anisocytosis SLIGHT = 6-15 cells (100X) (0-5/hpf); Band 2 % (5-11); Hemoglobin 8.3 g/dL (14.0-18.0); Lymphocytes 6 % (21-51); MDiff Complete? YES; Macrocytosis SLIGHT = 6-15 cells (100X) (0-5/hpf); Mean Corpuscular HGB CONC 33.8 g/dL (32.0-36.0); Mean Corpuscular Hemoglobin 33.2 pg (27.0-31.0); Mean Corpuscular Volume 98.4 fl (78.0-98.0); Mean Platelet Volume 7.2 fL (7.4-10.4); Monocytes 13 % (0-10); Neutrophil 79 % (42-75); Ovalocytes SLIGHT = 2-5 cells (100X) (0-1/hpf); Platelet Count 177 10x3/uL (130-400); Platelet Morphology Comment Appears Adequate; RBC Distribution Width 16.7 % (11.5-14.5); Red Blood Cell (RBC) Count 2.48 mill/uL (4.70-6.10); White Blood Cell (WBC) Count 11.2 10x3/uL (4.8-10.8)
[2022-08-06] MEDS ORDERED: Bisacodyl 5 MG TAB PO PRN (07:00)
[2022-08-06] MEDS ORDERED: Bumetanide 1 MG TAB PO SCH (07:30)
[2022-08-06] MEDS: Tamsulosin HCl 0.4 MG CAP PO SCH (08:23)
[2022-08-06] MEDS: Allopurinol 100 MG TAB PO SCH (08:23)
[2022-08-06] MEDS: Folic Acid/Vit B Comp W-C PO SCH (08:23)
[2022-08-06] MEDS: Midodrine HCl 5 MG TAB PO SCH (08:23)
[2022-08-06] MEDS: Loratadine 10 MG TAB PO SCH (08:23)
[2022-08-06] MEDS: Gabapentin 300 MG CAP PO SCH (08:23)
[2022-08-06] MEDS: Spironolactone 25 MG TAB PO SCH (12:22)
[2022-08-06] MEDS: Mometasone 200 MCG/Formoterol 5 MCG 120 PUFF INHALER INH SCH (13:57)
[2022-08-06 16:08] VITALS: BP 136/79; TEMP 99.9
== END 2022-08-06 16:09 | disposition home health service (06) | DRG 919 ==
LOC: ERS 19:48 → CCU 22:54 → T4-A 08-04 18:44
PROVIDERS: ADMIT Internal Medicine; ATTEND Internal Medicine
PROC: 30233N1 Transfusion of Nonautologous Red Blood Cells into Peripheral Vein, Percutaneous Approach (ICD-10-PCS; principal; 2022-08-01)
PROC: 3E043XZ Introduction of Vasopressor into Central Vein, Percutaneous Approach (ICD-10-PCS; 2022-08-01)
PROC: 02HV33Z Insertion of Infusion Device into Superior Vena Cava, Percutaneous Approach (ICD-10-PCS; 2022-08-01)
PROC: B548ZZA Ultrasonography of Superior Vena Cava, Guidance (ICD-10-PCS; 2022-08-01)
DX: K91.840 Postprocedural hemorrhage of a digestive system organ or structure following a digestive system procedure (principal); G93.41 Metabolic encephalopathy; R57.8 Other shock; K66.1 Hemoperitoneum; I50.32 Chronic diastolic (congestive) heart failure; D62 Acute posthemorrhagic anemia; I13.0 Hypertensive heart and chronic kidney disease with heart failure and stage 1 through stage 4 chronic kidney disease, or unspecified chronic kidney disease; N17.9 Acute kidney failure, unspecified; Z20.822 Contact with and (suspected) exposure to COVID-19; J44.9 Chronic obstructive pulmonary disease, unspecified; E03.9 Hypothyroidism, unspecified; K74.60 Unspecified cirrhosis of liver; G47.33 Obstructive sleep apnea (adult) (pediatric); I25.10 Atherosclerotic heart disease of native coronary artery without angina pectoris; Y84.8 Other medical procedures as the cause of abnormal reaction of the patient, or of later complication, without mention of misadventure at the time of the procedure; N18.9 Chronic kidney disease, unspecified; I48.91 Unspecified atrial fibrillation; Z96.641 Presence of right artificial hip joint; M10.9 Gout, unspecified; Z86.718 Personal history of other venous thrombosis and embolism; Z95.1 Presence of aortocoronary bypass graft; Z99.89 Dependence on other enabling machines and devices; Z79.899 Other long term (current) drug therapy; Z79.890 Hormone replacement therapy; Z98.890 Other specified postprocedural states
CPT/HCPCS: 36415; 36416; 36430; 36556; 49083; 71045; 74177; 78278; 80048; 80053; 82728; 82805; 83540; 83550; 83735; 83880; 84100; 85025; 85610; 85730; 86850; 86900; 86901; 93005; 94640; 94760; 96365; 96366; 96375; 96376; A9560; C9113; J1644; J2272; J2597; J3010; J3475; J3490; J7050; J7611; J7620; P9016; P9047; Q9967; U0002

== ENCOUNTER 2022-09-12 08:46 | Day surgery (SDC) | payer MEDICARE ==
[~2022-09-12 08:46] MED LIST changes: +Acetaminophen 500 MG TAB PO SCH; -Heparin 1,000 UNITS/ML VIAL ONE; -Iopamidol-370 76% 500 ML 1 ML ONE; +diphenhydrAMINE 25 MG CAP PO SCH
[2022-09-12] MEDS ORDERED: Acetaminophen 500 MG TAB ONE (10:02)
[2022-09-12] MEDS ORDERED: FLU VACC QS2022-23(65YR UP)/PF 240 MCG/0.7 ML SYRINGE IM ONE (12:00)
[2022-09-12 16:53] VITALS: BP 121/68; TEMP 97.9
== END 2022-09-12 16:24 | disposition home or self-care (01) ==
LOC: ONC/OP 08:46
PROVIDERS: ATTEND Internal Medicine Hematology & Oncology
PROC: 30233N1 Transfusion of Nonautologous Red Blood Cells into Peripheral Vein, Percutaneous Approach (ICD-10-PCS; principal; 2022-09-12)
DX: D64.9 Anemia, unspecified (principal); D69.6 Thrombocytopenia, unspecified
CPT/HCPCS: 36430; 86850; 86900; 86901; 86920; P9016

== ENCOUNTER 2022-10-12 08:27 | Outpatient (CLI) | payer MEDICARE | END 2022-10-12 08:28 | disposition home or self-care (01) | LOC: NM 08:27 | PROVIDERS: ATTEND Physician Assistant Medical | DX: R74.8 Abnormal levels of other serum enzymes (principal) | CPT/HCPCS: 78306; A9503 ==

== ENCOUNTER 2023-01-31 09:04 | Outpatient (CLI) | payer MEDICARE | END 2023-01-31 09:05 | disposition home or self-care (01) | LOC: RAD 09:04 | PROVIDERS: ATTEND Internal Medicine Critical Care Medicine | DX: R06.00 Dyspnea, unspecified (principal); I51.7 Cardiomegaly | CPT/HCPCS: 71046 ==